=== PATIENT | female | born 1935 | race Caucasian/White ===

== ENCOUNTER 2022-09-11 14:07 | Inpatient (IN) ==
[2022-09-11] MEDS ORDERED: SODIUM CHLORIDE 0.9% 1000ML 500 ML IV ONE (14:32)
--- NOTE | 2022-09-11 14:37 | Emergency Department Note ---
Impression & Plan Acute hyperglycemia, Acute CVA (cerebrovascular accident), AMS (altered mental status), ESTHER (acute kidney injury) ED Provider Note NAME: RADHA HOUSE AGE: 86 SEX: F : 1935 ARRIVES VIA: Ambulance INFORMANT: Patient, EMS ED PROVIDER(S): Tom Herrera DO CHIEF COMPLAINT: Weakness HPI: The patient is an 86-year-old female who presented to the emergency department for an evaluation of altered mental status. Patient has been noncompliant with her medications. She has been falling recently. It was unclear if the patient was well enough to be seen as an outpatient. Her family members called 911 yesterday but the patient was able to refuse because she was not confused at that time. The family noticed that she is having worsening symptoms. She was noted to be ambulating poorly. She also was noted to have high blood sugar. Prehospital personnel noted that she does have a left-sided facial droop. She does have global weakness as well. It is unclear if the patient has been compliant with her outpatient medications. There is been no reported fevers. There is been no reported abdominal pain or vomiting. ROS: See above HPI for pertinent positives & negatives. A total of 10 systems reviewed and were otherwise negative. PAST MEDICAL HISTORY: See Below PAST SURGICAL HISTORY: See Below FAMILY HISTORY: See Below SOCIAL HISTORY: See Below HOME MEDICATIONS: See Below ALLERGIES: See Below VITALS: See Below PHYSICAL EXAMINATION: GENERAL: The patient is awake but somewhat listless. She is slow to follow commands. EYES: The conjunctivae are clear. The pupils are round and reactive. EARS, NOSE, MOUTH AND THROAT: The nose is without any evidence of any deformity. Mucous membranes are dry. NECK: The neck is nontender and supple. RESPIRATORY: Shallow respirations were noted. Diminished breath sounds are noted throughout. CARDIOVASCULAR: Regular rate and rhythm was noted auscultation. Systolic murmur was suggested. GASTROINTESTINAL: The abdomen is distended. There is no specific guarding or rigidity. MUSCULOSKELETAL/EXTREMITIES: There is no evidence of gross deformity full range of motion is noted in the hips and shoulders. SKIN: Trace pedal edema was noted bilaterally. NEUROLOGIC: Patient is awake to verbal commands. She appears to be oriented to person but not place or time. There was no drift in the upper extremities. There is a slight facial droop on the corner of the mouth on the left. Forehead appears to be spared. MEDICAL DECISION MAKING: The patient is an 86-year-old female who presented to the emergency department for an evaluation of altered mental status. The family has been trying to get the patient to come to the emergency department for an evaluation for the last 48 hours. The patient has been noted to have elevated blood sugar although she does not have a history of diabetes. The patient was also noted to have a left- sided facial droop which was new as of the last few weeks. I discussed patient's laboratory and radiographic studies with the family. The patient was found to have signs of subacute stroke on CT. The patient was also found have hyperglycemia and acute kidney injury. The patient was treated with IV antibiotic for empiric coverage. She was also treated with multiple IV fluid boluses and at the request of the admitting team she was started on DKA insulin. The patient was reevaluated multiple times. I discussed the patient's condition with the patient's family members as well. Triage Nursing notes reviewed. Prior medical records reviewed Vital Signs: reviewed and remarkable for bradycardia. Differential diagnosis: Infection, hypoglycemia, electrolyte abnormalities, overdose, toxicologic, cardiac sources, intracerebral event, neurologic, trauma, as well as other pathologies. ER treatment provided: See below Diagnostics interpreted by me: ECG: EKG was obtained in the emergency department. My interpretation is sinus bradycardia 53 bpm. There is no ectopy. There is no acute ST segment abnormalities noted. This was compared to a tracing from September 02, 2022. No changes were noted. Cardiac Monitoring: An order was placed for continuous cardiac monitoring. The monitor shows a rate of 56 bpm with sinus bradycardia. Laboratory studies: As stated above and show below. Imaging studies: See below Consultation(s): I [facility] this case [facility] COURSE: Procedures: none Critical Care: I have personally spent greater than 35 minutes of critical care time in the direct management of this patient. This includes bedside care, interpretation of diagnostic studies, and testing, discussion with consultants, patient, and family members, and other required patient management activities. This 35 minutes is in excess of all separately billable procedures. Past Med/Surg History Medical History Ambulatory dysfunction Aortic stenosis Atherogenic dyslipidemia Benign essential hypertension Diabetes Extensor tenosynovitis of right wrist Impingement of right shoulder Primary osteoarthritis, right wrist TIA (transient ischemic attack) Weakness Social History Smoking Status: Never smoker Preferred Language: Upper Sorbian Feels Safe at Home: Yes Allergies Allergies Allergy/AdvReac Type Severity Reaction Status Date / Time No Known Drug Allergies Allergy Unknown Unverified 09/02/22 15:19 Home Meds Home Medications Medication Instructions Recorded Confirmed furosemide 40 mg tablet 40 mg PO DAILY 09/02/22 09/02/22 ibuprofen 600 mg tablet 600 mg PO Q8H PRN 09/02/22 09/02/22 lisinopril 10 mg tablet 10 mg PO BID 09/02/22 09/02/22 metoprolol succinate 25 mg 25 mg PO BID 09/02/22 09/02/22 tablet,extended release 24 hr naproxen sodium 220 mg tablet 440 mg PO BID PRN 09/02/22 09/02/22 Previous Rx's Medication Instructions Recorded diazepam 5 mg tablet 5 mg PO USEASDIRECTD #2 tabs 05/09/22 Results & Data (ED) Vital Signs Vital Signs - 24 hr 09/11/22 14:02 09/11/22 15:00 09/11/22 15:00 Temperature 36.6 C Temperature Source Oral Pulse Rate 74 Pulse Rate [Right Finger] 56 L Pulse Rhythm Regular Pulse Rhythm [Right Finger] Regular Pulse Strength Normal Pulse Strength [Right Finger] Normal Respiratory Rate 19 18 Respiratory Effort / Characteristics Non-Labored Spontaneous Non-Labored Respiratory Depth Normal Normal Respiratory Pattern Regular Regular Blood Pressure 111/51 L Blood Pressure [Right Arm] 127/58 L Blood Pressure Mean 71 Blood Pressure Mean [Right Arm] 81 Blood Pressure Position Sitting Pulse Oximetry 98 97 Oxygen Delivery Method Room Air Room Air Room Air Sepsis Recent Fever Within 48 Hours No Sepsis New/Unexplained Change in Mental Status N/A Sepsis Action Taken by Nursing No Action Required 09/11/22 15:00 Temperature Temperature Source Pulse Rate Pulse Rate [Right Finger] Pulse Rhythm Pulse Rhythm [Right Finger] Pulse Strength Pulse Strength [Right Finger] Respiratory Rate Respiratory Effort / Characteristics Respiratory Depth Respiratory Pattern Blood Pressure Blood Pressure [Right Arm] Blood Pressure Mean Blood Pressure Mean [Right Arm] Blood Pressure Position Pulse Oximetry Oxygen Delivery Method Room Air Sepsis Recent Fever Within 48 Hours Sepsis New/Unexplained Change in Mental Status Sepsis Action Taken by Long-Term Medications Current Medication List: was personally reviewed by me Laboratory Data Attestation: I reviewed the patient's lab results. Result diagrams: 09/11/22 15:14 09/11/22 15:14 Lab Results 09/11/22 09/11/22 09/11/22 Range/Units 15:14 15:14 15:14 WBC 13.06 H (4.8-10.8) K/ul RBC 4.07 (3.93-5.22) M/uL Hgb 11.4 L (12.0-16.0) g/dl Hct 33.7 L (34.1-44.9) % MCV 82.8 (80.0-100.0) fL MCH 28.0 (25.0-34.0) pg MCHC 33.8 (32.0-36.0) g/dL RDW Std Deviation 40.5 (36.4-46.3) fL RDW Coeff of Germain 13.3 (11.5-14.5) % Plt Count 362 (130-400) K/uL MPV 11.8 (9.4-12.3) fL Immature Gran % (Auto) 0.6 % Neut % (Auto) 76.8 % Lymph % (Auto) 15.2 % [place] % (Auto) 6.1 % Eos % (Auto) 1.0 % Baso % (Auto) 0.3 % Neut # (Auto) 10.03 H (1.4-6.5) K/uL Lymph # (Auto) 1.98 (1.2-3.4) K/uL [place] # (Auto) 0.80 (0.24-0.82) K/uL Eos # (Auto) 0.13 (0-0.50) K/uL Baso # (Auto) 0.04 (0-0.2) K/uL Immature Gran # (Auto) 0.08 H (0.00-0.02) K/uL PT 10.9 (9.0-12.0) Seconds INR 1.0 (0.9-1.1) APTT 24.7 (21.0-31.0) Seconds PTT Ratio 0.9 ABG pH (7.35-7.45) ABG pCO2 (35-46) mmHg ABG pO2 (80-95) mmHg ABG HCO3 (19-24) mmol/L ABG O2 Saturation (90-95) % ABG Base Excess (-9-1.8) mEq/L Campos Test (Pos) Oxygen Given Sodium 123 L (136-145) mmol/L Potassium 3.5 (3.5-5.1) mmol/L Chloride 91 L (98-107) mmol/L Carbon Dioxide 20 L (21-32) mmol/L Anion Gap 12 H (3-11) BUN 80 H (6-23) mg/dl Creatinine 2.70 H (0.6-1.2) mg/dl Est Cr Clr Drug Dosing 11.1 ml/min Est GFR ( Amer) 18.0 ml/min Est GFR (Non-Af Amer) 15.6 ml/min BUN/Creatinine Ratio 29.6 H (10-20) Glucose 532 H* (70-99(Fasting)) mg/dl Lactate (0.4-2.0) mmol/L Calcium 7.7 L (8.5-10.1) mg/dl Magnesium 1.8 (1.7-2.4) mg/dl Total Bilirubin 0.4 (0.2-1.0) mg/dl Direct Bilirubin 0.1 (0-0.2) mg/dl AST 7 L (13-39) U/L ALT 9 (7-52) U/L Alkaline Phosphatase 84 (34-104) U/L Troponin I High Sens 27.2 H (0-14) pg/ml C-Reactive Protein 1.01 H (0-0.5) mg/dl Total Protein 5.6 L (6.0-8.3) gm/dl Albumin 2.9 L (3.4-5.0) gm/dl 09/11/22 09/11/22 09/11/22 Range/Units 15:14 15:14 15:14 WBC (4.8-10.8) K/ul RBC (3.93-5.22) M/uL Hgb (12.0-16.0) g/dl Hct (34.1-44.9) % MCV (80.0-100.0) fL MCH (25.0-34.0) pg MCHC (32.0-36.0) g/dL RDW Std Deviation (36.4-46.3) fL RDW Coeff of Germain (11.5-14.5) % Plt Count (130-400) K/uL MPV (9.4-12.3) fL Immature Gran % (Auto) % Neut % (Auto) % Lymph % (Auto) % [place] % (Auto) % Eos % (Auto) % Baso % (Auto) % Neut # (Auto) (1.4-6.5) K/uL Lymph # (Auto) (1.2-3.4) K/uL [place] # (Auto) (0.24-0.82) K/uL Eos # (Auto) (0-0.50) K/uL Baso # (Auto) (0-0.2) K/uL Immature Gran # (Auto) (0.00-0.02) K/uL PT (9.0-12.0) Seconds INR (0.9-1.1) APTT (21.0-31.0) Seconds PTT Ratio ABG pH 7.39 (7.35-7.45) ABG pCO2 36 (35-46) mmHg ABG pO2 100 H (80-95) mmHg ABG HCO3 22 (19-24) mmol/L ABG O2 Saturation 99.5 H (90-95) % ABG Base Excess -2.6 (-9-1.8) mEq/L Campos Test Pos (Pos) Oxygen Given ROOM AIR Sodium (136-145) mmol/L Potassium (3.5-5.1) mmol/L Chloride (98-107) mmol/L Carbon Dioxide (21-32) mmol/L Anion Gap (3-11) BUN (6-23) mg/dl Creatinine (0.6-1.2) mg/dl Est Cr Clr Drug Dosing ml/min Est GFR ( Amer) ml/min Est GFR (Non-Af Amer) ml/min BUN/Creatinine Ratio (10-20) Glucose (70-99(Fasting)) mg/dl Lactate 0.6 (0.4-2.0) mmol/L Calcium (8.5-10.1) mg/dl Magnesium (1.7-2.4) mg/dl Total Bilirubin (0.2-1.0) mg/dl Direct Bilirubin (0-0.2) mg/dl AST (13-39) U/L ALT (7-52) U/L Alkaline Phosphatase (34-104) U/L Troponin I High Sens (0-14) pg/ml C-Reactive Protein Cancelled (0-0.5) mg/dl Total Protein (6.0-8.3) gm/dl Albumin (3.4-5.0) gm/dl Administered Medications Discontinued Medications Sodium Chloride (Nss 1000ml) 500 mls @ 999 mls/hr IV .Q31M ONE Stop: 09/11/22 15:02 Last Infusion: 09/11/22 15:20 Dose: 0 mls/hr Documented By: Admin: 09/11/22 14:43 Dose: 999 mls/hr Documented By: AP Imaging Data Radiologist's Impression: Chest X-Ray 09/11/22 14:31 XR chest 1V portable HISTORY: 86 years-old Female Sepsis acute sepsis COMPARISON: None TECHNIQUE: AP view of the chest FINDINGS: Heart is upper limits of normal in size. Mitral annular calcifications. No pneumothorax, pleural effusion, airspace consolidation or overt pulmonary edema. Degenerative changes of the shoulders and spine. Mild lumbar levoscoliosis. IMPRESSION: No acute process. ACT 112: Negative or not required by law. The above report was generated using voice recognition software. It may contain grammatical, syntax or spelling errors. Electronically signed by: Manuel Joaquin M.D. 09/11/2022 2:[address] 09/11/22 14:[address] DOSE: HISTORY: Altered mental status. TECHNIQUE: Multiaxial CT images of the head were performed without the use of intravenous contrast. Automated exposure control was utilized for this study. A dose lowering technique was utilized adhering to the principles of ALARA. Comparison: None. Findings: The paranasal sinuses and mastoid air cells are clear. The calvarium and skull base are intact. There is no mass, hematoma, midline shift, acute infarct. White matter hypodensity is nonspecific but suggestive of moderate m icrovascular ischemic change. The ventricles and sulci demonstrate mild age- related involutional changes. 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 Impression: No acute intracranial abnormality. Old left basal ganglia infarct. ACT 112: Negative or not required by law. Electronically signed by: Eusebio Barnett M.D. 09/11/2022 3:48 PM Abdomen/Pelvis CT 09/11/22 14:33 CT SCAN OF THE ABDOMEN AND PELVIS WITHOUT IV CONTRAST CLINICAL HISTORY: Abdominal distention COMPARISON STUDY: No priors. TECHNIQUE: CT scan of the abdomen and pelvis is performed from the lung bases to the proximal femora. Images are reviewed in the axial, sagittal, and coronal planes. IV contrast was not administered for this examination. Note that the examination is suboptimal without oral and IV contrast. A dose lowering technique was utilized adhering to the principles of ALARA. CT DOSE: 957.11 mGy.cm FINDINGS: Lung bases: The heart is enlarged and without pericardial effusion. The coronary arteries and mitral annulus are densely calcified. A 3 mm pulmonary nodule the left lung base as seen on image #5. The lung bases are otherwise clear noting bibasilar scarring/atelectasis. A small hiatal hernia is noted. Liver: The unenhanced liver is normal in size, contour, and attenuation. There is no intrahepatic biliary ductal dilatation. Gallbladder: Unremarkable. Spleen: Normal in size and attenuation. Pancreas: The unenhanced pancreas is moderately atrophic and grossly unremarkable. Adrenal glands: Unremarkable. Kidneys: The unenhanced kidneys demonstrate cortical atrophy and are without hydronephrosis. There are no renal calculi identified. A 2.0 cm cyst is noted in the left upper pole. 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 Abdominal vasculature: The abdominal aorta is normal in course and caliber noting moderate to advanced atherosclerotic calcification. Bowel: Question mild wall thickening of the duodenum with faint surrounding infiltration. There is mild to moderate colonic fecal retention. No bowel ob struction is seen. The appendix is well-visualized and normal. Peritoneum: There is no intraperitoneal free air or abdominal ascites. Lymphadenopathy: None. Pelvic viscera: There is gas within the bladder lumen. The bladder is otherwise normal as visualized. Uterus and adnexa are grossly unremarkable. Skeletal structures: The skeletal structures are heterogeneously osteopenic. There is moderate to advanced lumbosacral spondylosis. No lytic or blastic lesions are seen. IMPRESSION: 1. Question mild wall thickening of the duodenum with faint surrounding infiltration. Correlate clinically for evidence of duodenitis or possibly ulcer disease. This could be further assessed with endoscopy if clinically warranted. 2. [id number] colonic fecal retention. 3. Gas within the bladder lumen is nonspecific and may be related to instrumentation. Correlate with clinical findings and urinalysis. 4. Additional findings as above. ACT 112: Negative or not required by law. Electronically signed by: Shai Viera M.D. 09/11/2022 3:57 PM Discharge Plan Visit Data Chief Complaint: Weakness Stated Complaint: HYPERGLYCEMIA, DECLINE IN HEALTH, CONFUSION ED Provider: Tom Herrera Discharge Problem: Acute hyperglycemia, Acute CVA (cerebrovascular accident), AMS (altered mental status), ESTHER (acute kidney injury) Patient Disposition: Being Evaluated by Hospitalist Forms Stand Alone Forms: [facility] Prescriptions Prescriptions: No Action furosemide 40 mg tablet 40 mg PO DAILY lisinopril 10 mg tablet 10 mg PO BID naproxen sodium 220 mg tablet 440 mg PO BID PRN metoprolol succinate 25 mg tablet extended release 24 hr 25 mg PO BID ibuprofen 600 mg tablet 600 mg PO Q8H PRN diazepam 5 mg tablet 5 mg PO USEASDIRECTD Qty: 2 0RF Rx Instructions: 1 PO 30 MIN PRIOR TO PROCEDURE; 1 PO 5 MIN PRIOR TO PROCEDURE Referrals Referrals: PCP,NO [Physician] - : AMS (altered mental status) Qualifiers: Altered mental status type: unspecified Qualified Code(s): R41.82 - Altered mental status, unspecified
--- NOTE | 2022-09-11 15:00 | XRay Report ---
XR chest 1V portable HISTORY: 86 years-old Female Sepsis acute sepsis COMPARISON: None TECHNIQUE: AP view of the chest FINDINGS: Heart is upper limits of normal in size. Mitral annular calcifications. No pneumothorax, pleural effu ochoa, airspace consolidation or overt pulmonary edema. Degenerative changes of the shoulders and spin e. Mild lumbar levoscoliosis. IMPRESSION: No acute process. ACT 112: Negative or not required by law. The above report was generated using voice recognition software. It may contain grammatical, syntax o r spelling errors. Electronically signed by: Manuel Joaquin M.D. 09/11/2022 2:58 PM
[2022-09-11 15:27] LABS: Basophils # (auto) 0.04 K/uL (0-0.2); Basophils % (auto) 0.3 %; Eosinophils # (auto) 0.13 K/uL (0-0.50); Hematocrit (blood only) 33.7 % (34.1-44.9); Hemoglobin 11.4 g/dl (12.0-16.0); Immature Granulocytes # (auto) 0.08 K/uL (0.00-0.02); Immature Granulocytes % (auto) 0.6 %; Lymphocytes # (auto) 1.98 K/uL (1.2-3.4); Lymphocytes % (auto) 15.2 %; Mean Corpuscular Hgb Conc 33.8 g/dL (32.0-36.0); Mean Corpuscular Volume 82.8 fL (80.0-100.0); Mean Platelet Volume 11.8 fL (9.4-12.3); Monocytes % (auto) 6.1 %; Neutrophils # (auto) 10.03 K/uL (1.4-6.5); Neutrophils % (auto) 76.8 %; Platelet Count 362 K/uL (130-400); RDW Coefficient of Variation 13.3 % (11.5-14.5); RDW Standard Deviation 40.5 fL (36.4-46.3); Red Blood Count 4.07 M/uL (3.93-5.22); White Blood Count 13.06 K/ul (4.8-10.8)
[2022-09-11 15:41] LABS: Base Excess ABG -2.6 mEq/L (-9-1.8); HCO3 ABG 22 mmol/L (19-24); Oxygen Saturation ABG 99.5 % (90-95); PCO2 ABG 36 mmHg (35-46); PO2 ABG 100 mmHg (80-95); pH ABG 7.39 (7.35-7.45)
[2022-09-11 15:42] LABS: Allen Test Pos (Pos)
[2022-09-11] MEDS ORDERED: SODIUM CHLORIDE 0.9% 1000ML 1,000 ML IV ONE (15:48)
--- NOTE | 2022-09-11 15:49 | CT Scan Report ---
HEAD CT NONCONTRAST CT DOSE: HISTORY: Altered mental status. TECHNIQUE: Multiaxial CT images of the head were performed without the use of intravenous contrast. A utomated exposure control was utilized for this study. A dose lowering technique was utilized adheri ng to the principles of ALARA. Comparison: None. Findings: The paranasal sinuses and mastoid air cells are clear. The calvarium and skull base are int act. There is no mass, hematoma, midline shift, acute infarct. White matter hypodensity is nonspecifi c but suggestive of moderate microvascular ischemic change. The ventricles and sulci demonstrate mild age-related involutional changes. 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 Impression: No acute intracranial abnormality. Old left basal ganglia infarct. ACT 112: Negative or not required by law. Electronically signed by: Eusebio Barnett M.D. 09/11/2022 3:48 PM
--- NOTE | 2022-09-11 15:59 | CT Scan Report ---
CT SCAN OF THE ABDOMEN AND PELVIS WITHOUT IV CONTRAST CLINICAL HISTORY: Abdominal distention COMPARISON STUDY: No priors. TECHNIQUE: CT scan of the abdomen and pelvis is performed from the lung bases to the proximal femora. Images are reviewed in the axial, sagittal, and coronal planes. IV contrast was not administered for this examination. Note that the examination is suboptimal without oral and IV contrast. A dose lower ing technique was utilized adhering to the principles of ALARA. CT DOSE: 957.11 mGy.cm FINDINGS: Lung bases: The heart is enlarged and without pericardial effusion. The coronary arteries and mitral annulus are densely calcified. A 3 mm pulmonary nodule the left lung base as seen on image #5. The gemini ng bases are otherwise clear noting bibasilar scarring/atelectasis. A small hiatal hernia is noted. Liver: The unenhanced liver is normal in size, contour, and attenuation. There is no intrahepatic preston iary ductal dilatation. Gallbladder: Unremarkable. Spleen: Normal in size and attenuation. Pancreas: The unenhanced pancreas is moderately atrophic and grossly unremarkable. Adrenal glands: Unremarkable. Kidneys: The unenhanced kidneys demonstrate cortical atrophy and are without hydronephrosis. There ar e no renal calculi identified. A 2.0 cm cyst is noted in the left upper pole. 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 Abdominal vasculature: The abdominal aorta is normal in course and caliber noting moderate to advance d atherosclerotic calcification. Bowel: Question mild wall thickening of the duodenum with faint surrounding infiltration. There is mi ld to moderate colonic fecal retention. No bowel obstruction is seen. The appendix is well-visualize d and normal. Peritoneum: There is no intraperitoneal free air or abdominal ascites. Lymphadenopathy: None. Pelvic viscera: There is gas within the bladder lumen. The bladder is otherwise normal as visualized. Uterus and adnexa are grossly unremarkable. Skeletal structures: The skeletal structures are heterogeneously osteopenic. There is moderate to adv anced lumbosacral spondylosis. No lytic or blastic lesions are seen. IMPRESSION: 1. Question mild wall thickening of the duodenum with faint surrounding infiltration. Correlate clini augutsus for evidence of duodenitis or possibly ulcer disease. This could be further assessed with endos copy if clinically warranted. 2. Dbnm-rh-[id number] colonic fecal retention. 3. Gas within the bladder lumen is nonspecific and may be related to instrumentation. Correlate with clinical findings and urinalysis. 4. Additional findings as above. ACT 112: Negative or not required by law. Electronically signed by: Shai Viera M.D. 09/11/2022 3:57 PM
[2022-09-11 16:02] LABS: Partial Thromboplastin Ratio 0.9; Partial Thromboplastin Time 24.7 Seconds (21.0-31.0); Prothrombin Time 10.9 Seconds (9.0-12.0)
[2022-09-11 16:12] LABS: Albumin Level 2.9 gm/dl (3.4-5.0); BUN Creatinine Ratio 29.6 (10-20); Bilirubin Direct 0.1 mg/dl (0-0.2); Bilirubin,Total 0.4 mg/dl (0.2-1.0); C Reactive Protein 1.01 mg/dl (0-0.5); Calcium 7.7 mg/dl (8.5-10.1); Creatinine Clr Calc Pharmacy 11.1 ml/min; Est GFR (Non-African American) 15.6 ml/min; Magnesium 1.8 mg/dl (1.7-2.4); Potassium 3.5 mmol/L (3.5-5.1); Total Protein 5.6 gm/dl (6.0-8.3); Troponin I High Sensitivity 27.2 pg/ml (0-14)
[2022-09-11] MEDS ORDERED: GLUCOSE 10 TAB/TUBE PO PRN (16:18)
[2022-09-11] MEDS ORDERED: GLUCAGON FOR INJ 1 MG VIAL SQ PRN (16:18)
[2022-09-11] MEDS ORDERED: DEXTROSE 50% 50 ML SYRINGE IV PRN (16:18)
[2022-09-11] MEDS ORDERED: CARBOHYDRATES FOR HYPOGLYCEMIA PO PRN (16:18)
[2022-09-11] MEDS ORDERED: SODIUM CHLORIDE 0.9% 500 ML IV ONE (16:18)
[2022-09-11] MEDS ORDERED: DKA GOAL RANGE 150-250 mg/dl ONE (16:18)
[2022-09-11] MEDS ORDERED: STAT INSULIN DRIP STA (16:18)
[2022-09-11] MEDS ORDERED: GLUCOSE 40% GEL 15 GM TUBE PO PRN (16:18)
[2022-09-11] MEDS ORDERED: cefTRIAXone SODIUM 2,000 MG/70 ML BAG IV STA (16:20)
--- NOTE | 2022-09-11 16:26 | Electrocardiogram Report ---
Test Reason : Blood Pressure : / mmHG Vent. Rate : 053 BPM Atrial Rate : 053 BPM P-R Int : 156 ms QRS Dur : 086 ms QT Int : 470 ms P-R-T Axes : 000 -15 025 degrees QTc Int : 441 ms Poor data quality, interpretation may be adversely affected Sinus bradycardia Old Inferior infarct (cited on or before 02-SEP-2022) Abnormal ECG When compared with ECG of 02-SEP-2022 15:04, HR has decreased by 11 bpm Premature atrial complexes are no longer Present Criteria for Anterior infarct are no longer Present Confirmed by Patric Watkins ([id number]) on 09/11/2022 4:26:26 PM Referred By: REFERRED SELF Confirmed By:Patric Watkins
[2022-09-11] MEDS ORDERED: INSULIN REGULAR 250 UNITS in SODIUM CHLORIDE 0.9% 247.5 ML IV SCH (16:30)
--- NOTE | 2022-09-11 16:30 | History & Physical Report ---
Date of Service September 11, 2022 Assessment & Plan (1) DKA (diabetic ketoacidosis): Plan: -Admit to the PCU -Patient is currently afebrile, hemodynamically stable, and stable on RA -BSG noted to be 532 in the ED, AG of 12 with bicarb of 12, while she was not acidotic on her VBG it looks as though she was entering into an acidosis -Unclear of the exact etiology of her DKA at this time, suspect infection at this time with multiple possible etiologies including possible UTI, septic arthritis of the right wrist S/P steroid injection, or occult abdominal infection -Having nursing staff place gray and obtain UA, ordering xray of the right wrist to monitor for signs of infection, will get stool studies including C. diff to rule out gastrointestinal infection -Was given NSS and a dose of ceftriaxone in the ED, had the ED start DKA protocol prior to admission -Continue with DKA protocol, initial potassium was noted to be 3.5, ordered 10 meq IV KCL to be given now, will continue with IV hydration with LR at 100 mL/hr x 2 bags, will continue with IV fluid hydration if she still cannot take po intake later tonight -For now will switch patient to zosyn and unasyn for broad coverage until her infectious workup is resulted -Monitor BMP, mag, and phos q4h while on insulin drip -Will order A1c for the am for better monitoring of her blood glucose control (2) AMS (altered mental status): Plan: -Patient noted to have significant change in mental status over the past 48-72 hours, also noted to be slurring words and ambulatory dysfunction -Concern for possible stroke earlier in the week, CT head in the ED was negative for acute findings, will obtain MRI of the brain and TTE with bubble study for further evaluation -There is liekly also a metabolic/infectious component to her AMS at this time as well, continue to monitor mental status with treatment of her DKA and possible infection (3) High anion gap metabolic acidosis: Plan: -Likely from her DKA, lactate was WNL in the ED -Continue to treat DKA and possible infections and monitor for improvement on q4h DKA labs -If her acidosis and renal function would continue to decline would consider the addition of Sodium bicarb (4) SHRUTHI (acute kidney injury): Plan: -Cr noted to be 2.7 today, cr was 1.40 as of 08/10/21 -Unclear of patient's baseline since last year, also unsure if her baseline changed after her recent episode of rhabdo prior to moving to [place] includes the [facility] [place]. Patient was also consistently taking Naproxen and Ibuprofen daily for OA pain, this could be contributing to her poor renal function -Continue with IV hydration, DKA treatment, and antibiotics -Placed forley for better monitoring of her intake and output -Montior renal function q4h on BMP, if she continues to worsen would consult nephrology (5) Hyponatremia: Plan: -Noted to be 130 today after correcting for her glucose of 532 -Likely from poor oral intake, dehydration, and possible ATN -Monitor sodium on q4h BMP, if significant change on repeat would touch base with Nephrology (6) Aortic stenosis: Plan: -Known to have severe -Follows with Dr. Oquendo -FU with TTE tomorrow -Monitor for volume overload while on IV fluids (7) Benign essential hypertension: Plan: -Currently hemodynamically stable -Hold lisinopril and lasix for Shruthi and electrolyte abnormalities -Will continue metoprolol for now Plan The patient was discussed with Dr. Day at the time of the admission History of Present Illness Chief Complaint: AMS Primary Care Provider: Alton Villatoro MD Piper is an 86 year old female with a PMH significant for DM (not recently on insulin), right wrist OA, previous CVA, multiple recent falls, HTN, hyperlipidemia, Aortic stenosis, In the ED the patient was found to be afebrile, hemodynamically stable, stable on RA, and bradycardic in the 50's. Labs were remarkable for leukocytosis of 13.06 with left shift of 10.03, stable hgb of 11.4, VBG showing a pH of 7.39, pCO2 of 36, and pO2 of 100, glucose of 532, Cr of 2.7 (was noted to be 1.4 as of 08/10/21), corrected sodium of 130, chloride of 91, AG of 12 with bicarb of 20, corrected calcium of 8.4, stable liver function, CRP of 1.01, with initial high sensitivity troponin of 27.2, Chest xray was negative for acute findings. CT of the head was negative for acute findings but showed an Old left basal ganglia infarct. CT of the abdomen/pelvis WO IV contrast shows "1. Question mild wall thickening of the duodenum with faint surrounding infiltration. Correlate clinically for evidence of duodenitis or possibly ulcer disease. This could be further assessed with endoscopy if clinically warranted. 2. Trog-fx-gclgqmxr colonic fecal retention. 3. Gas within the bladder lumen is nonspecific and may be related to instrumentation. Correlate with clinical findings and urinalysis. 4. Additional findings as above.". Prior to admission the patient was given 1L NSS bolus, one dose of ceftriaxone, and was started on DKA protocol at the request of the admitting team. At the time of the exam the patient was resting comfortably in bed in no acute distress with her Son and his sitting bedside; the majority of the history was obtained from the patient's family due to her currently mental status. They state that she is originally from [place] and was just moved up her to live with her son and his around [facility]. Initially, the patient was doing well, they turned their dinning room into her bedroom. However, over the past 1-2 weeks she has had a steep decline in health and function. They state that she had a fall approximately two weeks ago but did not sustain any serious injuries. Approximately 3 days ago she started slurring her words and having worsening ambulatory dysfunction. The patient has had loose stool over the past week but only one bowel movement daily, they think that her stool looked dark but has not seen blood in her stool. They note that she had a steroid injection in her left wrist for arthritis with orthopedics approximately 1-2 weeks ago. She has not been eating well over the past week and takes Ibuprofen and Naproxen multiple times daily for her arthritis. They state that she had been managing her blood glucose with diet and exercise and does not use insulin. Yesterday they found her blood glucose to be in the 500's, they called 911 but the patient had decision making capacity at that time and refused to be transported to the hospital. Her family is concerned that she may have a UTI as she had been complaining of dysuria and urinary frequency over the past few days. When asked about any wounds they noted that she has a sacral wound on her buttocks that they have been cleaning and adding barrier cream multiple times a day. The patient was recently seen by Dr. Quijano who also known the patient and her family well due to being a family friend. He was very concerned at their visit due to a significant decline in overall function and health since he last saw her. He was helping the family establish her care in the [facility] system with Dr. Vilaltoro as they known him as well. Dr. Truong's note explains that the patient was hospitalized for Rhabdomyolysis due to a fall and being on the ground for 2 days prior to being moved [facility] [employer]. I spoke to the family regarding code status, they are currently in the process of getting a living will and POA for the patient. We discussed code status, the patient's family states that she has stated clearly to them in the past that she wishes to be a DNR/DNI. When asked, the patient denies recent fevers, chills, headache, changes in vision, hearing, taste, and smell, chest pain, SOB, cough, abdominal pain, nausea, vomiting, and any pain at the time of my exam. Please refer to Dr. Day's attestation for any changes to the treatment plan Allergies Allergy/AdvReac Type Severity Reaction Status Date / Time No Known Allergies Allergy Verified 09/11/22 17:02 Home Medications Medication Instructions Recorded Confirmed Type lisinopril 10 mg tablet 10 mg PO BID 09/02/22 09/11/22 History atorvastatin 40 mg tablet 40 mg PO DAILY 09/11/22 09/11/22 History metoprolol tartrate 25 mg tablet 25 mg PO BID 09/11/22 09/11/22 History insulin aspart U-100 100 unit/mL 1 unit (0.01 mL) SC UD #10 mL 09/16/22 Rx subcutaneous solution (Novolog U-100 Insulin aspart) insulin glargine 100 unit/mL 8 unit (0.08 mL) subcut UD #10 mL 09/16/22 Rx subcutaneous solution (Lantus U-100 Insulin) pantoprazole 40 mg tablet,delayed 40 mg PO QAM #30 tabs 09/16/22 Rx release Past Med/Surg History Medical History Ambulatory dysfunction Aortic stenosis Atherogenic dyslipidemia Benign essential hypertension Diabetes Extensor tenosynovitis of right wrist Impingement of right shoulder Primary osteoarthritis, right wrist TIA (transient ischemic attack) Weakness Social History Smoking Status: Never smoker Hx Alcohol Use: No Hx Substance Use: No Preferred Language: [place] Citizen Communication Ability: Effective Computer Video Game Designer Required: No Beliefs That Will Affect Care: None Current Living Situation: Family Current Living Situation Comment: lives with son kimo Feels Safe at Home: Yes Assistive Devices: Cane Review of Systems Review of Systems: Denies current fever, chills, headache, changes in vision, hearing, taste, and smell, chest pain, SOB, cough, abdominal pain, nausea, vomiting, hematemesis, All systems have been reviewed and are otherwise negative. Physical Exam Physical Exam: Physical Exam: General: In no acute distress, stated age,malnourished, chronically ill- appearing HEENT: Normocephalic, atraumatic, no scleral icterus, pupils around round, symmetrical, and reactive to light, dry mucus membranes, trachea midline, no thyromegaly Chest/Pulm: No respiratory distress, symmetrical chest expansion, clear breath sounds throughout Cardiac: RRR, 5/6 systolic murmur heard best in the aortic area with radiation to the carotids Abdomen: Negative for ascites and bruising, normoactive bowel sounds, soft, non-tender to palpation throughout Musculoskeletal: Patient with intak ROM of the BL upper and lower extremities, right wrist is currently wrapped due to attempts to place IV, no significant swelling, erythema, or pain upon movement or palpation of the wrist. Patient with small, non-infected skin tear on the second left toe, no other acute trauma noted. Able to flex head and turn her head to the left/right without stiffness or pain Extremities: Radial, dorsalis pedis, and posterior tibial pulses are intact and symmetrical, no edema noted in the BL LE's Skin: Patient with pressure ulcer and minor skin breakdown on the sacrum, no current drainage at this time Neuro: Alert and oriented to person and month only, place, currently slurring words, possible right facial droop, CN II-XII tested and intact,, no tremors noted Psych: No acute distress, calm and cooperative during the exam Results & Data Results & Data ([facility]) Vital Signs (Past 12 Hours) Vital Signs Temp Pulse Pulse Resp BP BP Pulse Ox 09/11/22 15:00 09/11/22 15:00 56 L 18 127/58 L 97 09/11/22 15:00 09/11/22 14:02 36.6 C 74 19 111/51 L 98 O2 Del Method 09/11/22 15:00 Room Air 09/11/22 15:00 Room Air 09/11/22 15:00 Room Air 09/11/22 14:02 Room Air Laboratory Results Abnormal lab results 09/11/22 09/11/22 09/11/22 Range/Units 15:14 15:14 15:14 WBC 13.06 H (4.8-10.8) K/ul Hgb 11.4 L (12.0-16.0) g/dl Hct 33.7 L (34.1-44.9) % Neut # (Auto) 10.03 H (1.4-6.5) K/uL Immature Gran # (Auto) 0.08 H (0.00-0.02) K/uL ABG pO2 100 H (80-95) mmHg ABG O2 Saturation 99.5 H (90-95) % Sodium 123 L (136-145) mmol/L Chloride 91 L (98-107) mmol/L Carbon Dioxide 20 L (21-32) mmol/L Anion Gap 12 H (3-11) BUN 80 H (6-23) mg/dl Creatinine 2.70 H (0.6-1.2) mg/dl BUN/Creatinine Ratio 29.6 H (10-20) Glucose 532 H* (70-99(Fasting)) mg/dl Calcium 7.7 L (8.5-10.1) mg/dl AST 7 L (13-39) U/L Troponin I High Sens 27.2 H (0-14) pg/ml C-Reactive Protein 1.01 H (0-0.5) mg/dl Total Protein 5.6 L (6.0-8.3) gm/dl Albumin 2.9 L (3.4-5.0) gm/dl Diagnostic Findings Chest X-Ray 09/11/22 14:31 XR chest 1V portable HISTORY: 86 years-old Female Sepsis acute sepsis COMPARISON: None TECHNIQUE: AP view of the chest FINDINGS: Heart is upper limits of normal in size. Mitral annular calcifications. No pneumothorax, pleural effusion, airspace consolidation or overt pulmonary edema. Degenerative changes of the shoulders and spine. Mild lumbar levoscoliosis. IMPRESSION: No acute process. ACT 112: Negative or not required by law. The above report was generated using voice recognition software. It may contain grammatical, syntax or spelling errors. Electronically signed by: Manuel Joaquin M.D. 09/11/2022 2:[address] 09/11/22 14:[address] DOSE: HISTORY: Altered mental status. TECHNIQUE: Multiaxial CT images of the head were performed without the use of intravenous contrast. Automated exposure control was utilized for this study. A dose lowering technique was utilized adhering to the principles of ALARA. Comparison: None. Findings: The paranasal sinuses and mastoid air cells are clear. The calvarium and skull base are intact. There is no mass, hematoma, midline shift, acute infarct. White matter hypodensity is nonspecific but suggestive of moderate microvascular ischemic change. The ventricles and sulci demonstrate mild age- related involutional changes. 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 Impression: No acute intracranial abnormality. Old left basal ganglia infarct. ACT 112: Negative or not required by law. Electronically signed by: Eusebio Barnett M.D. 09/11/2022 3:48 PM Abdomen/Pelvis CT 09/11/22 14:33 CT SCAN OF THE ABDOMEN AND PELVIS WITHOUT IV CONTRAST CLINICAL HISTORY: Abdominal distention COMPARISON STUDY: No priors. TECHNIQUE: CT scan of the abdomen and pelvis is performed from the lung bases to the proximal femora. Images are reviewed in the axial, sagittal, and coronal planes. IV contrast was not administered for this examination. Note that the examination is suboptimal without oral and IV contrast. A dose lowering technique was utilized adhering to the principles of ALARA. CT DOSE: 957.11 mGy.cm FINDINGS: Lung bases: The heart is enlarged and without pericardial effusion. The coronary arteries and mitral annulus are densely calcified. A 3 mm pulmonary nodule the left lung base as seen on image #5. The lung bases are otherwise clear noting bibasilar scarring/atelectasis. A small hiatal hernia is noted. Liver: The unenhanced liver is normal in size, contour, and attenuation. There is no intrahepatic biliary ductal dilatation. Gallbladder: Unremarkable. Spleen: Normal in size and attenuation. Pancreas: The unenhanced pancreas is moderately atrophic and grossly unremarkable. Adrenal glands: Unremarkable. Kidneys: The unenhanced kidneys demonstrate cortical atrophy and are without hydronephrosis. There are no renal calculi identified. A 2.0 cm cyst is noted in the left upper pole. 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 Abdominal vasculature: The abdominal aorta is normal in course and caliber noting moderate to advanced atherosclerotic calcification. Bowel: Question mild wall thickening of the duodenum with faint surrounding infiltration. There is mild to moderate colonic fecal retention. No bowel obstruction is seen. The appendix is well-visualized and normal. Peritoneum: There is no intraperitoneal free air or abdominal ascites. Lymphadenopathy: None. Pelvic viscera: There is gas within the bladder lumen. The bladder is otherwise normal as visualized. Uterus and adnexa are grossly unremarkable. Skeletal structures: The skeletal structures are heterogeneously osteopenic. There is moderate to advanced lumbosacral spondylosis. No lytic or blastic lesions are seen. IMPRESSION: 1. Question mild wall thickening of the duodenum with faint surrounding infiltration. Correlate clinically for evidence of duodenitis or possibly ulcer disease. This could be further assessed with endoscopy if clinically warranted. 2. Dgvl-bo-tlxlvyoq colonic fecal retention. 3. Gas within the bladder lumen is nonspecific and may be related to instrumentation. Correlate with clinical findings and urinalysis. 4. Additional findings as above. ACT 112: Negative or not required by law. Electronically signed by: Shai Viera M.D. 09/11/2022 3:57 PM Wrist X-Ray 09/11/22 17:17 XR wrist RT 2V HISTORY: 86 years-old Female monitor for signs of infection acute right wrist pain with possible infection COMPARISON: ] Hand radiographs 08/28/2022 TECHNIQUE: 2 views of the right wrist FINDINGS: Demineralized appearance of the bones. Multiple articulation osteoarthritis, severe within the first carpal metacarpal joint. There is no acute fracture, dislocation or osseous erosion. Arterial calcifications. IMPRESSION: No acute fracture or dislocation. ACT 112: Negative or not required by law. The above report was generated using voice recognition software. It may contain grammatical, syntax or spelling errors. Electronically signed by: Manuel Joaquin M.D. 09/11/2022 5:36 PM ECG Additional Comments: Sinus bradycardia Inferior infarct (cited on or before 02-SEP-2022) Abnormal ECG When compared with ECG of 02-SEP-2022 15:04, (unconfirmed) Premature atrial complexes are no longer Present Criteria for Anterior infarct are no longer Present Code Status & VTE Plan Code Status DNR/DNI VTE Prophylaxis Plan VTE Prophylaxis will be ordered: Yes Supervising Physician Co-Signing Physician Notes Patient seen and examined by bedside. I obtained a history and physical examination during face to face encounter. I discussed plan of care with patient and APC Chandrakanto. I reviewed above note and agree with it. Patient admitted for DKA. Will be placed on IV insulin and IVF. will monitor. PG Care Time/CCT Total # of Minutes Spent Total Time Spent with Patient: Total time spent is greater than 50% in coordination of care (as documented) at patient's floor/unit and/or counseling patient: C[place] [address] Initial Inpt Care Lvl 3 Patient Type Established Medical Decision Making High Complexity Diagnoses DKA (diabetic ketoacidosis) E11.10 AMS (altered mental status) R41.82 Altered mental status type: unspecified High anion gap metabolic acidosis E87.29 SHRUTHI (acute kidney injury) N17.9 Hyponatremia E87.1 Aortic stenosis I35.0 Benign essential hypertension I10 (1) AMS (altered mental status) Altered mental status type: unspecified Qualified Code(s): R41.82 - Altered mental status, unspecified
[2022-09-11] MEDS ORDERED: POTASSIUM CHLORIDE / WTR 10 MEQ/100 ML PLCT IV ONE (17:24)
[2022-09-11] MEDS ORDERED: LACTATED RINGER'S 1,000 ML IV SCH (17:30)
--- NOTE | 2022-09-11 17:37 | XRay Report ---
XR wrist RT 2V HISTORY: 86 years-old Female monitor for signs of infection acute right wrist pain with possible inf ection COMPARISON: ] Hand radiographs 08/28/2022 TECHNIQUE: 2 views of the right wrist FINDINGS: Demineralized appearance of the bones. Multiple articulation osteoarthritis, severe within the first carpal metacarpal joint. There is no acute fracture, dislocation or osseous erosion. Arterial calcifi cations. IMPRESSION: No acute fracture or dislocation. ACT 112: Negative or not required by law. The above report was generated using voice recognition software. It may contain grammatical, syntax o r spelling errors. Electronically signed by: Manuel Joaquin M.D. 09/11/2022 5:36 PM
[2022-09-11] MEDS ORDERED: AMPICILLIN/SULBACTAM SOD 1,500 MG in 0.9 % SODIUM CHLORIDE 100 ML IV SCH (18:00)
[2022-09-11] MEDS ORDERED: SODIUM CHLOR 0.45% + 20MEQ KCL 20 MEQ/1,000 ML BAG IV SCH (18:30)
[2022-09-11 18:50] LABS: Troponin I High Sensitivity 24.3 pg/ml (0-14)
[2022-09-11 18:51] LABS: Influenza A virus by PCR Negative (Neg); Influenza B virus by PCR Negative (Neg); RSV by PCR Negative (Neg); SARS CoV2 RNA(COVID-19) Ceph NEGATIVE (Negative)
[2022-09-11 18:52] LABS: Magnesium 1.9 mg/dl (1.7-2.4); Phosphorus 3.7 mg/dl (2.5-4.9)
[2022-09-11] MEDS ORDERED: PIPERACILLIN/TAZOBACTAM 3.375 GM in DEXTROSE 5% 100 ML IV STA (20:19)
[2022-09-11] MEDS ORDERED: PANTOprazole 40 MG in SYRINGE 0 ML IV STA (20:23)
[2022-09-11] MEDS: INSULIN ASPART PER UNIT SC SCH (21:29)
[2022-09-11] MEDS: METOPROLOL TARTRATE 25 MG TAB PO SCH (22:05)
[2022-09-11 22:25] LABS: BUN Creatinine Ratio 33.3 (10-20); Calcium 8.2 mg/dl (8.5-10.1); Creatinine Clr Calc Pharmacy 12.7 ml/min; Est GFR (African American) 21.1 ml/min; Est GFR (Non-African American) 18.2 ml/min; Magnesium 1.8 mg/dl (1.7-2.4); Phosphorus 2.7 mg/dl (2.5-4.9); Potassium 3.3 mmol/L (3.5-5.1)
[2022-09-11] MEDS ORDERED: PENDING D5 1/2NS+20mEq KCL IVF SCH (22:45)
[2022-09-11] MEDS: D5W AND 1/2NSS + 20MEQ KCL 20 MEQ/1,000 ML BAG IV SCH (22:59)
[2022-09-12 02:09] LABS: Hematocrit (blood only) 32.3 % (34.1-44.9); Hemoglobin 10.8 g/dl (12.0-16.0)
[2022-09-12 02:32] LABS: BUN Creatinine Ratio 34.7 (10-20); Creatinine Clr Calc Pharmacy 13.7 ml/min; Est GFR (African American) 23.2 ml/min; Magnesium 1.7 mg/dl (1.7-2.4); Phosphorus 3.1 mg/dl (2.5-4.9); Potassium 3.3 mmol/L (3.5-5.1)
[2022-09-12] MEDS: PIPERACILLIN/TAZOBACTAM 3.375 GM in DEXTROSE 5% 100 ML IV SCH ×3 (03:46→16:13)
[2022-09-12 04:11] LABS: Appearance Urine Cloudy (Clear); Bilirubin Urine Negative (Negative); Blood Urine Trace (Negative); Color Urine Yellow; Epithelial Cell Urine Auto >30 /lpf (0-5); Glucose Urine UA Negative (Negative); Ketones Urine Negative (Negative); Leukocyte Esterase Urine 2+ (Negative); Nitrite Urine Negative (Negative); Protein Urine Negative (Negative); Specific Gravity Urine 1.015 (1.000-1.030); Urobilinogen Urine Negative (Negative); WBC Urine Automated >30 /hpf (0-5)
[2022-09-12 04:23] LABS: Bacteria Urine Automated 1+ (Negative)
[2022-09-12] MEDS ORDERED: PHARMACY GLYCEMIC MGMT CONSULT PRN (05:38)
--- NOTE | 2022-09-12 07:16 | Magnetic Resonance Report ---
MRI OF THE BRAIN WITHOUT IV CONTRAST CLINICAL HISTORY: Strokelike symptoms. Change in mental status. Difficulty with speech and ambulation . COMPARISON STUDY: CT of the brain dated 09/11/2022. TECHNIQUE: MRI of the brain was performed utilizing various T1 and T2-weighted sequences in the axial , sagittal, and coronal planes. IV contrast was not administered for this examination. FINDINGS: Brain parenchyma: There is age-related involutional change noting moderate to advanced confluent subc ortical and periventricular microangiopathic disease. There is an irregular region of restricted diff usion identified in the morena which measures up to 11 mm in dimension. This likely represents an acute to subacute lacunar infarct. No additional foci of restricted diffusion are identified. Chronic infa rcts are noted in the left basal ganglia and the left thalamus. There is no hemorrhage or mass effect . No extra-axial fluid collection is seen. The cerebellar tonsils are normal in configuration. Ventricles, sulci, and cisterns: Prominent secondary to involutional change. Pituitary and sella: Unremarkable. Intracranial vasculature: Normal flow voids are maintained at the skull base. Orbits: The bony orbits are grossly intact. Orbital contents are normal in appearance noting bilatera l ocular lens implants. Sinuses and mastoids: Clear. Calvarium: Unremarkable. Cervical cord: Partially visualized cervical spinal cord is normal in morphology and signal intensity . IMPRESSION: 1. There is irregular focus of restricted diffusion identified within the morena, likely representing a n acute to subacute lacunar infarct. Clinical correlation will be required. 2. No additional foci of acute ischemia are identified. 3. There is no hemorrhage or mass effect. 4. Chronic changes as above. ACT 112: Negative or not required by law. Electronically signed by: Shai Viera M.D. 09/12/2022 7:13 AM
[2022-09-12 07:40] LABS: BUN Creatinine Ratio 32.7 (10-20); Calcium 7.9 mg/dl (8.5-10.1); Creatinine Clr Calc Pharmacy 13.3 ml/min; Est GFR (African American) 22.4 ml/min; Est GFR (Non-African American) 19.3 ml/min; Magnesium 1.6 mg/dl (1.7-2.4); Phosphorus 2.2 mg/dl (2.5-4.9); Potassium 3.4 mmol/L (3.5-5.1)
[2022-09-12] MEDS: ATORVASTATIN 40 MG TAB PO SCH (09:28)
[2022-09-12] MEDS: PANTOprazole 40 MG in SYRINGE 0 ML IV SCH ×2 (09:28→21:52)
[2022-09-12] MEDS: METOPROLOL TARTRATE 25 MG TAB PO SCH ×2 (09:28→22:19)
[2022-09-12] MEDS ORDERED: LANTUS PER UNIT CHARGE SQ ONE (09:30)
[2022-09-12] MEDS: SODIUM CHLORIDE 0.9% 1000ML 1,000 ML IV SCH ×2 (10:03→22:35)
[2022-09-12] MEDS: POTASSIUM CHLORIDE / WTR 10 MEQ/100 ML PLCT IV SCH ×2 (10:05→11:32)
[2022-09-12] MEDS: D5W AND 1/2NSS + 20MEQ KCL 20 MEQ/1,000 ML BAG IV SCH (10:17)
--- NOTE | 2022-09-12 10:44 | Pharmacy Report ---
Pharmacy Glycemic Short Note 2 - Date of Service September 12, 2022 - Glycemic Short BSG Results (Last 24 hours): 09/11/22 09/11/22 09/11/22 14:32 15:14 18:32 Glucose 532 H* POC Glucose 506 H* 461 H* 09/11/22 09/11/22 09/11/22 19:44 21:19 21:35 Glucose 202 H POC Glucose 389 H* 204 H 09/11/22 09/11/22 09/12/22 22:26 23:32 00:27 Glucose POC Glucose 153 H 113 H 125 H 09/12/22 09/12/22 09/12/22 01:33 01:40 02:30 Glucose 178 H POC Glucose 180 H 200 H 09/12/22 09/12/22 09/12/22 03:33 04:34 06:36 Glucose POC Glucose 201 H 204 H 170 H 09/12/22 09/12/22 09/12/22 06:37 08:47 10:00 Glucose 170 H POC Glucose 144 H 143 H OUTPATIENT ANTIDIABETIC REGIMEN: * None * Unknown HbA1c - ordered for today ASSESSMENT: * 86 yo F w hx diabetes noted but not on any outpatient diabetes medications admitted with AMS and possible DKA due to slight elevation in anion gap and slightly low CO2 in the context of severe hyperglycemia > 500 mg/dL * Insulin drip initiated - rates and BSG's trended down overnight with no Lantus administered. Currently running at 2 units/hr with BSG of 144 mg/dL this AM * Anion gap closed, CO2 wnl * Discussed w Dr. Shay MARTELL to transition off insulin drip. Fluids were switched from [id number] IVF to NS this AM * Patient remains NPO for now. Diet may or may not be ordered later today * Will give a very low dose of Lantus to transition due to NPO status, stopping D5W fluids, plus low rates of insulin drip * Will start weight-based moderate stress Novolog * OK to stop drip 2-6 hours after Lantus administration PLAN FOR INPATIENT GLYCEMIC CONTROL: * Basal insulin * Lantus 10 units SQ x1 then 0-10 units BID based on BSG * Bolus insulin * NovoLog per scale ACHS or Q6hrs while NPO * Goal Range: Low 120 mg/dL - High 160 mg/dL * Correction Factor: 45 mg/dL/unit * Nutritional / Prandial insulin per carb ratio of 1 unit per 14 grams CHO consumed
[2022-09-12 11:53] LABS: Hematocrit (blood only) 33.9 % (34.1-44.9); Hemoglobin 11.3 g/dl (12.0-16.0); Mean Corpuscular Hgb Conc 33.3 g/dL (32.0-36.0); Mean Corpuscular Volume 84.1 fL (80.0-100.0); Mean Platelet Volume 11.5 fL (9.4-12.3); Platelet Count 347 K/uL (130-400); RDW Coefficient of Variation 13.3 % (11.5-14.5); Red Blood Count 4.03 M/uL (3.93-5.22); White Blood Count 11.56 K/ul (4.8-10.8)
[2022-09-12 12:20] LABS: BUN Creatinine Ratio 31.9 (10-20); Calcium 8.4 mg/dl (8.5-10.1); Creatinine Clr Calc Pharmacy 14.7 ml/min; Est GFR (African American) 25.3 ml/min; Est GFR (Non-African American) 21.8 ml/min; Magnesium 1.6 mg/dl (1.7-2.4); Potassium 3.6 mmol/L (3.5-5.1)
[2022-09-12 13:51] LABS: Estimated Average Glucose > 438 mg/dl; Hemoglobin A1C > 16.9 % (4.5-5.6)
--- NOTE | 2022-09-12 14:01 | XCELERA ---
[id number] \\[id number]
[2022-09-12] MEDS: POT PHOSPHATE MONOBASIC W/ SOD TAB PO SCH ×3 (14:09→22:19)
[2022-09-12 15:36] LABS: Creatinine Clr Calc Pharmacy 15.3 ml/min; Est GFR (African American) 26.4 ml/min; Est GFR (Non-African American) 22.8 ml/min; Magnesium 1.7 mg/dl (1.7-2.4); Phosphorus 1.8 mg/dl (2.5-4.9); Potassium 3.7 mmol/L (3.5-5.1)
[2022-09-12] MEDS: INSULIN ASPART PER UNIT SC SCH ×5 (17:10→21:51)
[2022-09-12] MEDS ORDERED: INSULIN ASPART PER UNIT SC SCH (18:00)
[2022-09-12 18:44] LABS: BUN Creatinine Ratio 30.1 (10-20); Calcium 8.1 mg/dl (8.5-10.1); Creatinine Clr Calc Pharmacy 15.3 ml/min; Est GFR (African American) 26.6 ml/min; Est GFR (Non-African American) 22.9 ml/min; Magnesium 1.6 mg/dl (1.7-2.4); Phosphorus 2.6 mg/dl (2.5-4.9); Potassium 4.2 mmol/L (3.5-5.1)
[2022-09-12] MEDS: LANTUS PER UNIT CHARGE SQ SCH (21:51)
--- NOTE | 2022-09-12 22:34 | Hospitalist Progress Note ---
Date of Service September 12, 2022 Assessment & Plan (1) DKA (diabetic ketoacidosis): Plan: -Admit to the PCU -Patient is currently afebrile, hemodynamically stable, and stable on RA -BSG noted to be 532 in the ED, AG of 12 with bicarb of 12, while she was not acidotic on her VBG it looks as though she was entering into an acidosis -Unclear of the exact etiology of her DKA at this time, suspect infection at this time with multiple possible etiologies including possible UTI, septic arthritis of the right wrist S/P steroid injection, or occult abdominal infection -Having nursing staff place gray and obtain UA, ordering xray of the right wrist to monitor for signs of infection, will get stool studies including C. diff to rule out gastrointestinal infection -Was given NSS and a dose of ceftriaxone in the ED, had the ED start DKA protocol prior to admission -Continue with DKA protocol, initial potassium was noted to be 3.5, ordered 10 meq IV KCL to be given now, will continue with IV hydration with LR at 100 mL/hr x 2 bags, will continue with IV fluid hydration if she still cannot take po intake later tonight -For now will switch patient to zosyn and unasyn for broad coverage until her infectious workup is resulted -Monitor BMP, mag, and phos q4h while on insulin drip -Will order A1c for the am for better monitoring of her blood glucose control On 1215 patients A!C was above the upper limit >16 This likely provoked her altered mental status. She will need to be on insulin. will monitor her blood sugars. while also treating for possible cystitis. (2) AMS (altered mental status): Plan: -Patient noted to have significant change in mental status over the past 48-72 hours, also noted to be slurring words and ambulatory dysfunction -Concern for possible stroke earlier in the week, CT head in the ED was negative for acute findings, will obtain MRI of the brain and TTE with bubble study for further evaluation -There is liekly also a metabolic/infectious component to her AMS at this time as well, continue to monitor mental status with treatment of her DKA and possible infection Appears to have resolved on 09/12 no longer slurring words. likely a combination of her DKA (3) High anion gap metabolic acidosis: Plan: -Likely from her DKA, lactate was WNL in the ED -Continue to treat DKA and possible infections and monitor for improvement on q4h DKA labs -If her acidosis and renal function would continue to decline would consider the addition of Sodium bicarb (4) ESTHER (acute kidney injury): Plan: -Cr noted to be 2.7 today, cr was 1.40 as of 08/10/21 -Unclear of patient's baseline since last year, also unsure if her baseline changed after her recent episode of rhabdo prior to moving to [facility]. Patient was also consistently taking Naproxen and Ibuprofen daily for OA pain, this could be contributing to her poor renal function -Continue with IV hydration, DKA treatment, and antibiotics -Placed forley for better monitoring of her intake and output -Montior renal function q4h on BMP, if she continues to worsen would consult nephrology (5) Hyponatremia: Plan: -Noted to be 130 today after correcting for her glucose of 532 -Likely from poor oral intake, dehydration, and possible ATN -Monitor sodium on q4h BMP, if significant change on repeat would touch base with Nephrology (6) Aortic stenosis: Plan: -Known to have severe -Follows with Dr. Oquendo -GURPREET with TTE tomorrow -Monitor for volume overload while on IV fluids (7) Benign essential hypertension: Plan: -Currently hemodynamically stable -Hold lisinopril and lasix for Esther and electrolyte abnormalities -Will continue metoprolol for now Plan The patient was discussed with Dr. Day at the time of the admission Admission and Anticipated Discharge Date Admission Date: September 11, 2022 Subjective 86 yo female reports feeling better. She is intermittently confused. Review of Systems Review of Systems: All systems reviewed & are unremarkable except as noted in HPI & below Physical Exam Physical Exam: General:In no acute distress, stated age,malnourished, chronically ill-appearing HEENT:Normocephalic, atraumatic, no scleral icterus, pupils around round, symmetrical, and reactive to light,drymucus membranes, trachea midline, no thyromegaly Chest/Pulm:No respiratory distress, symmetrical chest expansion, clear breath sounds throughout Cardiac:RRR, 5/6 systolic murmur heard best in the aortic area with radiation to the carotids Abdomen:Negative for ascites and bruising, normoactive bowel sounds, soft, non-tender to palpation throughout Musculoskeletal:Patient with intak ROM of the BL upper and lower extremities, right wrist is currently wrapped due to attempts to place IV, no significant swelling, erythema, or pain upon movement or palpation of the wrist. Patient with small, non-infected skin tear on the second left toe, no other acute trauma noted. Able to flex head and turn her head to the left/right without stiffness or pain Extremities:Radial, dorsalis pedis, and posterior tibial pulses are intact and symmetrical, no edema noted in the BL LE's Skin:Patient with pressure ulcer and minor skin breakdown on the sacrum, no current drainage at this time Neuro:Alert and oriented to person and month only, place,CN II-XII tested and intact,, no tremors noted Psych:No acute distress, calm and cooperative during the exam Results & Data Results & Data ([facility]) Vital Signs (Past 12 Hours) Vital Signs Temp Pulse Resp BP Pulse Ox Pulse Ox O2 Del Method 09/12/22 19:47 36.6 C 58 L 18 114/55 L 98 Room Air 09/12/22 15:00 Room Air 09/12/22 15:00 36.7 C 62 20 121/78 99 Room Air 09/12/22 15:00 99 09/12/22 10:53 36.7 C 68 19 118/57 L 99 Room Air 09/12/22 10:39 Room Air O2 Del Method 09/12/22 19:47 09/12/22 15:00 09/12/22 15:00 09/12/22 15:00 Room Air 09/12/22 10:53 09/12/22 10:39 PG Care Time/CCT Total # of Minutes Spent Total Time Spent with Patient: Total time spent is greater than 50% in coordination of care (as documented) at patient's floor/unit and/or counseling patient: Coding Level of Care Code 37461 Subseq Hosp Care Lvl 2 Diagnoses DKA (diabetic ketoacidosis) E11.10 AMS (altered mental status) R41.82 Altered mental status type: unspecified High anion gap metabolic acidosis E87.29 ESTHER (acute kidney injury) N17.9 Hyponatremia E87.1 Aortic stenosis I35.0 Benign essential hypertension I10 Time Spent (min) 25 (1) AMS (altered mental status) Altered mental status type: unspecified Qualified Code(s): R41.82 - Altered mental status, unspecified
[2022-09-13] MEDS: PIPERACILLIN/TAZOBACTAM 3.375 GM in DEXTROSE 5% 100 ML IV SCH (05:16)
[2022-09-13 07:46] LABS: Hematocrit (blood only) 31.8 % (34.1-44.9); Hemoglobin 10.5 g/dl (12.0-16.0); Mean Corpuscular Hemoglobin 28.5 pg (25.0-34.0); Mean Corpuscular Volume 86.2 fL (80.0-100.0); Mean Platelet Volume 11.2 fL (9.4-12.3); Platelet Count 317 K/uL (130-400); RDW Coefficient of Variation 13.8 % (11.5-14.5); Red Blood Count 3.69 M/uL (3.93-5.22); White Blood Count 7.12 K/ul (4.8-10.8)
[2022-09-13 08:04] LABS: BUN Creatinine Ratio 31.5 (10-20); Calcium 7.8 mg/dl (8.5-10.1); Creatinine Clr Calc Pharmacy 20.2 ml/min; Est GFR (Non-African American) 31.9 ml/min; Potassium 3.4 mmol/L (3.5-5.1)
[2022-09-13] MEDS: INSULIN ASPART PER UNIT SC SCH ×4 (08:27→21:20)
--- NOTE | 2022-09-13 09:16 | Gastrointestinal Consultation ---
Date of Consultation September 13, 2022 Assessment & Plan (1) DKA (diabetic ketoacidosis): (2) Acute CVA (cerebrovascular accident): (3) Anemia: Plan 1. No plan for invasive GI work up at this time. 2. Reconsider if overt GIB or significant drop in H&H. 3. Continue Pantoprazole 40 mg BID. 4. Rest per primary team. Thank you for allowing us to participate in the care of this patient. If you have any questions or concerns, please do not hesitate to contact us. History of Present Illness Reason for Consultation: UGIB Requesting Physician: Dr. Day Attending Physician: Luan Day History of Present Illness Patient is a 86 y.o. female with a history of HTN, DM, and OA admitted with DKA and acute mental status changes and abnormal MRI with findings of "acute to subacute lacunar infarct" being referred for GI consultation in regard to anemia and concern for UGIB. Patient denies any overt GIB symptoms. H&H on admission was noted to be 11.4/33.7 and was 10.7/31.8 today. She denies any abdominal pain, n/v or other complaints. Allergies Allergy/AdvReac Type Severity Reaction Status Date / Time No Known Allergies Allergy Verified 09/11/22 17:02 Home Medications Medication Instructions Recorded Confirmed Type furosemide 40 mg tablet 40 mg PO DAILY 09/02/22 09/11/22 History ibuprofen 600 mg tablet 600 mg PO Q8H PRN Pain 09/02/22 09/11/22 History lisinopril 10 mg tablet 10 mg PO BID 09/02/22 09/11/22 History naproxen sodium 220 mg tablet 440 mg PO DAILY 09/02/22 09/11/22 History atorvastatin 40 mg tablet 40 mg PO DAILY 09/11/22 09/11/22 History metoprolol tartrate 25 mg tablet 25 mg PO BID 09/11/22 09/11/22 History Patient History Medical History Ambulatory dysfunction Aortic stenosis Atherogenic dyslipidemia Benign essential hypertension Diabetes Extensor tenosynovitis of right wrist Impingement of right shoulder Primary osteoarthritis, right wrist TIA (transient ischemic attack) Weakness Social History Smoking Status: Never smoker Hx Alcohol Use: No Hx Substance Use: No Preferred Language: Frisian Communication Ability: Effective Diplomatic Interpreter Required: No Beliefs That Will Affect Care: None Current Living Situation: Family Current Living Situation Comment: lives with son kimo Other Information That Helps Us Care for You: No Feels Safe at Home: Yes Safety Concerns: Feels Safe At This Time Assistive Devices: Cane Review of Systems Constitutional: + fatigue Respiratory: no cough and no dyspnea Cardiovascular: no chest pain and no palpitations Gastrointestinal: as per Subjective / HPI Physical Exam Constitutional: + frail appearing; no acute distress Eyes: + anicteric sclerae and EOM intact bilaterally Neck: normal visual inspection Respiratory: normal respiratory effort, lungs clear to auscultation Cardiovascular: Rate/Rhythm: regular rate and regular rhythm Heart Sounds: + murmur Gastrointestinal (Abdomen): Inspection/Auscultation: normal bowel sounds; abdomen not distended Percussion/Palpation: abdomen soft; abdomen nontender Musculoskeletal: Extremities: extremities normal to inspection Skin: warm and dry Psychiatric: A+Ox3, euthymic affect Results & Data ([facility]) Vital Signs (Past 12 Hours) Vital Signs Temp Pulse Pulse Resp BP BP Pulse Ox 09/13/22 08:16 36.5 C 59 L 18 132/73 96 09/13/22 07:13 09/13/22 07:13 56 L 09/13/22 03:18 37.0 C 55 L 18 111/60 97 09/13/22 01:07 57 L 09/12/22 22:57 36.7 C 56 L 18 113/55 L 100 O2 Del Method 09/13/22 08:16 Room Air 09/13/22 07:13 Room Air 09/13/22 07:13 09/13/22 03:18 Room Air 09/13/22 01:07 09/12/22 22:57 Room Air Diagnostic Findings Laboratory Results WBC 7.12 K/ul (4.8-10.8) 09/13/22 07:31 RBC 3.69 M/uL (3.93-5.22) L 09/13/22 07:31 Hgb 10.5 g/dl (12.0-16.0) L 09/13/22 07:31 Hct 31.8 % (34.1-44.9) L 09/13/22 07:31 MCV 86.2 fL (80.0-100.0) 09/13/22 07:31 MCH 28.5 pg (25.0-34.0) 09/13/22 07:31 MCHC 33.0 g/dL (32.0-36.0) 09/13/22 07:31 RDW Std Deviation 43.0 fL (36.4-46.3) 09/13/22 07:31 RDW Coeff of Germain 13.8 % (11.5-14.5) 09/13/22 07:31 Plt Count 317 K/uL (130-400) 09/13/22 07:31 MPV 11.2 fL (9.4-12.3) 09/13/22 07:31 Immature Gran % (Auto) 0.6 % 09/11/22 15:14 Neut % (Auto) 76.8 % 09/11/22 15:14 Lymph % (Auto) 15.2 % 09/11/22 15:14 [place] % (Auto) 6.1 % 09/11/22 15:14 Eos % (Auto) 1.0 % 09/11/22 15:14 Baso % (Auto) 0.3 % 09/11/22 15:14 Neut # (Auto) 10.03 K/uL (1.4-6.5) H 09/11/22 15:14 Lymph # (Auto) 1.98 K/uL (1.2-3.4) 09/11/22 15:14 [place] # (Auto) 0.80 K/uL (0.24-0.82) 09/11/22 15:14 Eos # (Auto) 0.13 K/uL (0-0.50) 09/11/22 15:14 Baso # (Auto) 0.04 K/uL (0-0.2) 09/11/22 15:14 Immature Gran # (Auto) 0.08 K/uL (0.00-0.02) H 09/11/22 15:14 ESR 33 mm/hr (0-30) H 09/11/22 15:14 PT 10.9 Seconds (9.0-12.0) 09/11/22 15:14 INR 1.0 (0.9-1.1) 09/11/22 15:14 APTT 24.7 Seconds (21.0-31.0) 09/11/22 15:14 PTT Ratio 0.9 09/11/22 15:14 ABG pH 7.39 (7.35-7.45) 09/11/22 15:14 ABG pCO2 36 mmHg (35-46) 09/11/22 15:14 ABG pO2 100 mmHg (80-95) H 09/11/22 15:14 ABG HCO3 22 mmol/L (19-24) 09/11/22 15:14 ABG O2 Saturation 99.5 % (90-95) H 09/11/22 15:14 ABG Base Excess -2.6 mEq/L (-9-1.8) 09/11/22 15:14 Campos Test Pos (Pos) 09/11/22 15:14 Oxygen Given ROOM AIR 09/11/22 15:14 Sodium 139 mmol/L (136-145) 09/13/22 07:31 Potassium 3.4 mmol/L (3.5-5.1) L 09/13/22 07:31 Chloride 110 mmol/L (98-107) H 09/13/22 07:31 Carbon Dioxide 21 mmol/L (21-32) 09/13/22 07:31 Anion Gap 8 (3-11) 09/13/22 07:31 BUN 47 mg/dl (6-23) H 09/13/22 07:31 Creatinine 1.49 mg/dl (0.6-1.2) H D 09/13/22 07:31 Est Cr Clr Drug Dosing 20.2 ml/min 09/13/22 07:31 Est GFR ( Amer) 37.0 ml/min 09/13/22 07:31 Est GFR (Non-Af Amer) 31.9 ml/min 09/13/22 07:31 BUN/Creatinine Ratio 31.5 (10-20) H 09/13/22 07:31 Glucose 133 mg/dl (70-99(Fasting)) H 09/13/22 07:31 POC Glucose 87 mg/dl (70-99) 09/13/22 07:20 Estimat Average Glucose > 438 mg/dl 09/12/22 11:30 Hemoglobin A1c > 16.9 % (4.5-5.6) H 09/12/22 11:30 Lactate 0.6 mmol/L (0.4-2.0) 09/11/22 15:14 Calcium 7.8 mg/dl (8.5-10.1) L 09/13/22 07:31 Phosphorus 2.6 mg/dl (2.5-4.9) 09/12/22 18:12 Magnesium 1.6 mg/dl (1.7-2.4) L 09/12/22 18:12 Total Bilirubin 0.4 mg/dl (0.2-1.0) 09/11/22 15:14 Direct Bilirubin 0.1 mg/dl (0-0.2) 09/11/22 15:14 AST 7 U/L (13-39) L 09/11/22 15:14 ALT 9 U/L (7-52) 09/11/22 15:14 Alkaline Phosphatase 84 U/L (34-104) 09/11/22 15:14 Troponin I High Sens 24.3 pg/ml (0-14) H 09/11/22 18:00 C-Reactive Protein 1.01 mg/dl (0-0.5) H 09/11/22 15:14 C-Reactive Protein Cancelled 09/11/22 15:14 Total Protein 5.6 gm/dl (6.0-8.3) L 09/11/22 15:14 Albumin 2.9 gm/dl (3.4-5.0) L 09/11/22 15:14 Procalcitonin 0.17 ng/ml (0-0.5) 09/11/22 15:14 TSH 1.747 uIu/ml (0.300-4.500) 09/11/22 18:00 Urine Color Yellow 09/12/22 02:30 Urine Appearance Cloudy (Clear) A 09/12/22 02:30 Urine pH 5.0 (4.5-7.5) 09/12/22 02:30 Ur Specific [place] 1.015 (1.000-1.030) 09/12/22 02:30 Urine Protein Negative (Negative) 09/12/22 02:30 Urine Glucose (UA) Negative (Negative) 09/12/22 02:30 Urine Ketones Negative (Negative) 09/12/22 02:30 Urine Blood Trace (Negative) H 09/12/22 02:30 Urine Nitrite Negative (Negative) 09/12/22 02:30 Urine Bilirubin Negative (Negative) 09/12/22 02:30 Urine Urobilinogen Negative (Negative) 09/12/22 02:30 Ur Leukocyte Esterase 2+ (Negative) H 09/12/22 02:30 Urine WBC (Auto) >30 /hpf (0-5) H 09/12/22 02:30 Urine RBC (Auto) 5-10 /hpf (0-4) H 09/12/22 02:30 U Hyaline Cast (Auto) 5-10 /lpf (0-5) H 09/12/22 02:30 U Epithel Cells (Auto) >30 /lpf (0-5) H 09/12/22 02:30 Urine Bacteria (Auto) 1+ (Negative) H 09/12/22 02:30 Ur Renal Epithelial Cell Not Reportable 09/12/22 02:30 SARS-CoV-2 (PCR) NEGATIVE (Negative) 09/11/22 Unknown Influenza Type A (PCR) Negative (Neg) 09/11/22 Unknown Influenza Type B (PCR) Negative (Neg) 09/11/22 Unknown RSV (RT-PCR) Negative (Neg) 09/11/22 Unknown Impressions Chest X-Ray 09/11/22 14:31 XR chest 1V portable HISTORY: 86 years-old Female Sepsis acute sepsis COMPARISON: None TECHNIQUE: AP view of the chest FINDINGS: Heart is upper limits of normal in size. Mitral annular calcifications. No pneumothorax, pleural effusion, airspace consolidation or overt pulmonary edema. Degenerative changes of the shoulders and spine. Mild lumbar levoscoliosis. IMPRESSION: No acute process. ACT 112: Negative or not required by law. The above report was generated using voice recognition software. It may contain grammatical, syntax or spelling errors. Electronically signed by: Manuel Joaquin M.D. 09/11/2022 2:[address] 09/11/22 14:[address] DOSE: HISTORY: Altered mental status. TECHNIQUE: Multiaxial CT images of the head were performed without the use of intravenous contrast. Automated exposure control was utilized for this study. A dose lowering technique was utilized adhering to the principles of ALARA. Comparison: None. Findings: The paranasal sinuses and mastoid air cells are clear. The calvarium and skull base are intact. There is no mass, hematoma, midline shift, acute infarct. White matter hypodensity is nonspecific but suggestive of moderate microvascular ischemic change. The ventricles and sulci demonstrate mild age- related involutional changes. 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 Impression: No acute intracranial abnormality. Old left basal ganglia infarct. ACT 112: Negative or not required by law. Electronically signed by: Eusebio Barnett M.D. 09/11/2022 3:48 PM Abdomen/Pelvis CT 09/11/22 14:33 CT SCAN OF THE ABDOMEN AND PELVIS WITHOUT IV CONTRAST CLINICAL HISTORY: Abdominal distention COMPARISON STUDY: No priors. TECHNIQUE: CT scan of the abdomen and pelvis is performed from the lung bases to the proximal femora. Images are reviewed in the axial, sagittal, and coronal planes. IV contrast was not administered for this examination. Note that the examination is suboptimal without oral and IV contrast. A dose lowering technique was utilized adhering to the principles of ALARA. CT DOSE: 957.11 mGy.cm FINDINGS: Lung bases: The heart is enlarged and without pericardial effusion. The coronary arteries and mitral annulus are densely calcified. A 3 mm pulmonary nodule the left lung base as seen on image #5. The lung bases are otherwise clear noting bibasilar scarring/atelectasis. A small hiatal hernia is noted. Liver: The unenhanced liver is normal in size, contour, and attenuation. There is no intrahepatic biliary ductal dilatation. Gallbladder: Unremarkable. Spleen: Normal in size and attenuation. Pancreas: The unenhanced pancreas is moderately atrophic and grossly unremarkable. Adrenal glands: Unremarkable. Kidneys: The unenhanced kidneys demonstrate cortical atrophy and are without hydronephrosis. There are no renal calculi identified. A 2.0 cm cyst is noted in the left upper pole. 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 Abdominal vasculature: The abdominal aorta is normal in course and caliber noting moderate to advanced atherosclerotic calcification. Bowel: Question mild wall thickening of the duodenum with faint surrounding infiltration. There is mild to moderate colonic fecal retention. No bowel obstruction is seen. The appendix is well-visualized and normal. Peritoneum: There is no intraperitoneal free air or abdominal ascites. Lymphadenopathy: None. Pelvic viscera: There is gas within the bladder lumen. The bladder is otherwise normal as visualized. Uterus and adnexa are grossly unremarkable. Skeletal structures: The skeletal structures are heterogeneously osteopenic. There is moderate to advanced lumbosacral spondylosis. No lytic or blastic lesions are seen. IMPRESSION: 1. Question mild wall thickening of the duodenum with faint surrounding infiltration. Correlate clinically for evidence of duodenitis or possibly ulcer disease. This could be further assessed with endoscopy if clinically warranted. 2. [id number] colonic fecal retention. 3. Gas within the bladder lumen is nonspecific and may be related to instrumentation. Correlate with clinical findings and urinalysis. 4. Additional findings as above. ACT 112: Negative or not required by law. Electronically signed by: Shai Viera M.D. 09/11/2022 3:57 PM Brain MRI 09/11/22 17:17 MRI OF THE BRAIN WITHOUT IV CONTRAST CLINICAL HISTORY: Strokelike symptoms. Change in mental status. Difficulty with speech and ambulation. COMPARISON STUDY: CT of the brain dated 09/11/2022. TECHNIQUE: MRI of the brain was performed utilizing various T1 and T2-weighted sequences in the axial, sagittal, and coronal planes. IV contrast was not administered for this examination. FINDINGS: Brain parenchyma: There is age-related involutional change noting moderate to advanced confluent subcortical and periventricular microangiopathic disease. There is an irregular region of restricted diffusion identified in the morena which measures up to 11 mm in dimension. This likely represents an acute to subacute lacunar infarct. No additional foci of restricted diffusion are identified. Chronic infarcts are noted in the left basal ganglia and the left thalamus. There is no hemorrhage or mass effect. No extra-axial fluid collection is seen. The cerebellar tonsils are normal in configuration. Ventricles, sulci, and cisterns: Prominent secondary to involutional change. Pituitary and sella: Unremarkable. Intracranial vasculature: Normal flow voids are maintained at the skull base. Orbits: The bony orbits are grossly intact. Orbital contents are normal in appearance noting bilateral ocular lens implants. Sinuses and mastoids: Clear. Calvarium: Unremarkable. Cervical cord: Partially visualized cervical spinal cord is normal in morphology and signal intensity. IMPRESSION: 1. There is irregular focus of restricted diffusion identified within the morena, likely representing an acute to subacute lacunar infarct. Clinical correlation will be required. 2. No additional foci of acute ischemia are identified. 3. There is no hemorrhage or mass effect. 4. Chronic changes as above. ACT 112: Negative or not required by law. Electronically signed by: Shai Viera M.D. 09/12/2022 7:13 AM Wrist X-Ray 09/11/22 17:17 XR wrist RT 2V HISTORY: 86 years-old Female monitor for signs of infection acute right wrist pain with possible infection COMPARISON: ] Hand radiographs 08/28/2022 TECHNIQUE: 2 views of the right wrist FINDINGS: Demineralized appearance of the bones. Multiple articulation osteoarthritis, severe within the first carpal metacarpal joint. There is no acute fracture, dislocation or osseous erosion. Arterial calcifications. IMPRESSION: No acute fracture or dislocation. ACT 112: Negative or not required by law. The above report was generated using voice recognition software. It may contain grammatical, syntax or spelling errors. Electronically signed by: Manuel Joaquin M.D. 09/11/2022 5:36 PM PG Care Time/CCT Total # of Minutes Spent Total Time Spent with Patient: Total time spent is greater than 50% in coordination of care (as documented) at patient's floor/unit and/or counseling patient: Coding Level of Care Code 36489 Initial Inpt Care Lvl 3 Diagnoses DKA (diabetic ketoacidosis) E11.10 Acute CVA (cerebrovascular accident) I63.9 Anemia D64.9
[2022-09-13] MEDS: LANTUS PER UNIT CHARGE SQ SCH ×2 (09:40→21:20)
[2022-09-13] MEDS: ATORVASTATIN 40 MG TAB PO SCH (09:41)
[2022-09-13] MEDS: PANTOprazole 40 MG in SYRINGE 0 ML IV SCH ×2 (09:41→20:31)
[2022-09-13] MEDS: POT PHOSPHATE MONOBASIC W/ SOD TAB PO SCH (09:41)
[2022-09-13] MEDS: METOPROLOL TARTRATE 25 MG TAB PO SCH (09:41)
[2022-09-13] MEDS: SODIUM CHLORIDE 0.9% 1000ML 1,000 ML IV SCH ×2 (11:35→23:35)
--- NOTE | 2022-09-13 11:54 | Pharmacy Report ---
Pharmacy Glycemic Short Note 2 - Date of Service September 13, 2022 - Glycemic Short BSG Results (Last 24 hours): 09/12/22 09/12/22 09/12/22 07:31 11:30 12:10 Glucose 138 H POC Glucose 158 H 126 H 09/12/22 09/12/22 09/12/22 13:07 14:07 14:43 Glucose 151 H POC Glucose 114 H 119 H 09/12/22 09/12/22 09/12/22 15:06 16:04 18:12 Glucose 184 H POC Glucose 154 H 194 H 09/12/22 09/13/22 09/13/22 21:47 07:20 07:31 Glucose 133 H POC Glucose 180 H 87 OUTPATIENT ANTIDIABETIC REGIMEN: * None * HbA1c: > 16.9% (09/12/22) ASSESSMENT: 09/13: * A1c demonstrates very poor outpatient control of diabetes. Patient received ~40 units of insulin yesterday, 15 units basal + 2 units bolus + ~23 units from the insulin drip prior to it shutting off. * Fasting BSG this AM was 87 mg/dL. Will reduce basal scale today. Patient does remain NPO. * Lunchtime BSG was 90 mg/dL. Will loosen carb ratio. 09/12: * 86 yo F w hx diabetes noted but not on any outpatient diabetes medications admitted with AMS and possible DKA due to slight elevation in anion gap and slightly low CO2 in the context of severe hyperglycemia > 500 mg/dL * Insulin drip initiated - rates and BSG's trended down overnight with no Lantus administered. Currently running at 2 units/hr with BSG of 144 mg/dL this AM * Anion gap closed, CO2 wnl * Discussed w Dr. Shay MARTELL to transition off insulin drip. Fluids were switched from [id number] IVF to NS this AM * Patient remains NPO for now. Diet may or may not be ordered later today * Will give a very low dose of Lantus to transition due to NPO status, stopping D5W fluids, plus low rates of insulin drip * Will start weight-based moderate stress Novolog * OK to stop drip 2-6 hours after Lantus administration PLAN FOR INPATIENT GLYCEMIC CONTROL: * Basal insulin * Lantus 0-5 units SC BID based on BSG * Bolus insulin * NovoLog per scale ACHS or Q6hrs while NPO * Goal Range: Low 110 mg/dL - High 140 mg/dL * Correction Factor: 45 mg/dL/unit * Nutritional / Prandial insulin per carb ratio of 1 unit per 15 grams CHO consumed
[2022-09-13] MEDS: POTASSIUM CHLORIDE CRTAB 20 MEQ TABCR PO SCH ×2 (12:55→20:31)
[2022-09-13] MEDS: cefTRIAXone SODIUM 1,000 MG Advantage IV SCH (12:55)
[2022-09-13] MEDS ORDERED: PIPERACILLIN/TAZOBACTAM 3.375 GM in DEXTROSE 5% 100 ML IV SCH (13:00)
--- NOTE | 2022-09-13 16:43 | Cardiology Consultation ---
Date of Consultation September 13, 2022 Assessment & Plan (1) Acute CVA (cerebrovascular accident): Patient will need to follow with neurology as an outpatient. Sooner rather than later would be ideal. Agree that she will benefit from physical therapy/rehab. Etiology of her CVA is not clear. Most likely related to hypertension, diabetes, atherosclerosis and advanced age. She does not have evidence of intracardiac shunt. Prior JOSE did not demonstrate PFO. No evidence of LV thrombus. However, with significant valvular heart disease she is at risk for occult atrial fibrillation/atrial flutter. Thus far, we have not been able to identify either of these arrhythmias. Once she is discharged I will have her undergo protracted cardiac monitoring. Should we identify 1 of these arrhythmias then she would be a candidate for oral anticoagulation to reduce the likelihood of recurrent CVA. In the meantime, aspirin or Plavix would be therapy of choice. (2) Aortic stenosis: This is moderate to severe. With recent CVA and decline in her functional capability she is not currently a candidate for aortic valve replacement either percutaneously or surgically. Should she recover adequately and her functional capacity improve she may be a candidate for TAVR in the future. Unlikely that she would be deemed sufficiently low risk to undergo SAVR. (3) Benign essential hypertension: She should resume prior outpatient regimen with metoprolol and lisinopril. 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 High intensity statin therapy with atorvastatin 40 mg daily is recommended. Plan Patient should follow-up with me in the cardiology office within 2 to 4 weeks of discharge. History of Present Illness Reason for Consultation: Cardiac management Attending Physician: Luan Day History of Present Illness This is a pleasant 86-year-old female well-known to me. She has a history of moderate to severe aortic stenosis which previously had been asymptomatic. Recently admitted to the hospital in [place] after she fell and was on the ground for 2 days. Reported to have had rhabdomyolysis. Details regarding the remainder of her work-up and treatment is unavailable to me at this time. I saw her in follow-up 11 days ago in the cardiology office. At that time, I noted a significant decline in her clinical status compared to the last time I saw her as an outpatient. She seemed to have slurred speech and her family states that had been occurring since her discharge from the hospital in [place]. She also had profound lower extremity weakness and some right upper extremity weakness. A neurology consultation was requested regarding possible stroke versus other systemic neurological pathology. On current admission the patient came in for rapid decline in neurologic and functional capabilities. She was found to have severely elevated blood sugar and evidence of infection. Neurologic imaging was completed confirming subacute CVA. She was treated with antibiotics for infection. Her blood sugar has been treated and she is now feeling much better. Plan is for discharge to rehab. I am asked to see her because I follow her chronically for her significant cardiac disease. Patient denies chest pain now or recently. No shortness of breath. No syncope, near syncope, orthopnea, PND, racing heartbeat, palpitations, or edema. Her strength has improved somewhat. She is more coherent and she states that she feels well. Her son is present at the bedside and confirms that she is much better than previous. She voices no other complaints or concerns at this time. I reviewed the monitor strips and note that she is in sinus rhythm with frequent PACs and occasional PVCs. There were some irregular rhythms with significant artifact so it is difficult to tell if she has sinus rhythm at that time or atrial fibrillation. Allergies Allergy/AdvReac Type Severity Reaction Status Date / Time No Known Allergies Allergy Verified 09/11/22 17:02 Home Medications Medication Instructions Recorded Confirmed Type furosemide 40 mg tablet 40 mg PO DAILY 09/02/22 09/11/22 History ibuprofen 600 mg tablet 600 mg PO Q8H PRN Pain 09/02/22 09/11/22 History lisinopril 10 mg tablet 10 mg PO BID 09/02/22 09/11/22 History naproxen sodium 220 mg tablet 440 mg PO DAILY 09/02/22 09/11/22 History atorvastatin 40 mg tablet 40 mg PO DAILY 09/11/22 09/11/22 History metoprolol tartrate 25 mg tablet 25 mg PO BID 09/11/22 09/11/22 History Patient History Medical History Ambulatory dysfunction Aortic stenosis Atherogenic dyslipidemia Benign essential hypertension Diabetes Extensor tenosynovitis of right wrist Impingement of right shoulder Primary osteoarthritis, right wrist TIA (transient ischemic attack) Weakness Social History Smoking Status: Never smoker Hx Alcohol Use: No Hx Substance Use: No Preferred Language: Uzbek Communication Ability: Effective [employer] Converter Blower Required: No Beliefs That Will Affect Care: None Current Living Situation: Family Current Living Situation Comment: lives with son kimo Other Information That Helps Us Care for You: No Feels Safe at Home: Yes Safety Concerns: Feels Safe At This Time Assistive Devices: Cane Review of Systems Review of Systems: Negative x12 point review except as per HPI Physical Exam Constitutional: Elderly, frail. No acute distress Eyes: Extraocular muscles intact. Sclera are anicteric. ENMT: Oral mucosa is pink moist and intact. Neck: No JVD Respiratory: Clear to auscultation bilaterally. No wheezing, rhonchi, or rales. Cardiovascular: Irregular rhythm. Normal rate. Sinus rhythm with frequent PACs on the monitor. Grade 3 out of 6 harsh systolic murmur which is crescendo decrescendo. Pulses are 1+ and symmetric. Gastrointestinal (Abdomen): Normal active bowel sounds. Nontender. Neurologic: Cognition is intact. Speech is improved but not at baseline. Psychiatric: A+Ox3, euthymic affect Results & Data ([facility]) Vital Signs (Past 12 Hours) Vital Signs Temp Pulse Pulse Resp BP Pulse Ox O2 Del Method 09/13/22 16:00 36.8 C 64 18 126/66 97 Room Air 09/13/22 11:30 36.8 C 52 L 18 133/74 97 Room Air 09/13/22 08:16 36.5 C 59 L 18 132/73 96 Room Air 09/13/22 07:13 Room Air 09/13/22 07:13 56 L PG Care Time/CCT Total # of Minutes Spent Total Time Spent with Patient: Total time spent is greater than 50% in coordination of care (as documented) at patient's floor/unit and/or counseling patient: [place] [address] Initial Inpt Care Lvl 3 Patient Type New Diagnoses Acute CVA (cerebrovascular accident) I63.9 Aortic stenosis I35.0 Benign essential hypertension I10 Atherogenic dyslipidemia E78.5
--- NOTE | 2022-09-13 22:32 | Hospitalist Progress Note ---
Date of Service September 13, 2022 Assessment & Plan (1) DKA (diabetic ketoacidosis): Plan: -Admit to the PCU -Patient is currently afebrile, hemodynamically stable, and stable on RA -BSG noted to be 532 in the ED, AG of 12 with bicarb of 12, while she was not acidotic on her VBG it looks as though she was entering into an acidosis -Unclear of the exact etiology of her DKA at this time, suspect infection at this time with multiple possible etiologies including possible UTI, septic arthritis of the right wrist S/P steroid injection, or occult abdominal infection -Having nursing staff place gray and obtain UA, ordering xray of the right wrist to monitor for signs of infection, will get stool studies including C. diff to rule out gastrointestinal infection -Was given NSS and a dose of ceftriaxone in the ED, had the ED start DKA protocol prior to admission -Continue with DKA protocol, initial potassium was noted to be 3.5, ordered 10 meq IV KCL to be given now, will continue with IV hydration with LR at 100 mL/hr x 2 bags, will continue with IV fluid hydration if she still cannot take po intake later tonight -For now will switch patient to zosyn and unasyn for broad coverage until her infectious workup is resulted -Monitor BMP, mag, and phos q4h while on insulin drip -Will order A1c for the am for better monitoring of her blood glucose control On 09/12 patients A!C was above the upper limit >16 This likely provoked her altered mental status. She will need to be on insulin. will monitor her blood sugars. while also treating for possible cystitis. ON 09/13 Her diabetes appears bettet controlled. Patient will need to be discharged on insulin. will continue IVF as patient has Acute kidney failure. Improving with IVF. (2) AMS (altered mental status): Plan: Metabolic encephalopathy -Patient noted to have significant change in mental status over the past 48-72 hours, also noted to be slurring words and ambulatory dysfunction -Concern for possible stroke earlier in the week, CT head in the ED was negative for acute findings, will obtain MRI of the brain and TTE with bubble study for further evaluation -There is liekly also a metabolic/infectious component to her AMS at this time as well, continue to monitor mental status with treatment of her DKA and possible infection Appears to have resolved on 09/12 no longer slurring words. likely a combination of her DKA (3) High anion gap metabolic acidosis: Plan: -Likely from her DKA, lactate was WNL in the ED -Continue to treat DKA and possible infections and monitor for improvement on q4h DKA labs -If her acidosis and renal function would continue to decline would consider the addition of Sodium bicarb (4) SHRUTHI (acute kidney injury): Plan: -Cr noted to be 2.7 today, cr was 1.40 as of 08/10/21 -Unclear of patient's baseline since last year, also unsure if her baseline changed after her recent episode of rhabdo prior to moving to [employer]. Patient was also consistently taking Naproxen and Ibuprofen daily for OA pain, this could be contributing to her poor renal function -DKA has resolved. SHRUTHI is improving, creat is near 1.4 (5) Hyponatremia: Plan: -Noted to be 130 today after correcting for her glucose of 532 -Likely from poor oral intake, dehydration, and possible ATN -Monitor sodium on q4h BMP, if significant change on repeat would touch base with Nephrology resolved on 09/13 (6) Aortic stenosis: Plan: -Known to have severe -Follows with Dr. Oquendo -FU with TTE tomorrow -Monitor for volume overload while on IV fluids (7) Benign essential hypertension: Plan: -Currently hemodynamically stable -Hold lisinopril and lasix for Shruthi and electrolyte abnormalities -Will continue metoprolol for now Admission and Anticipated Discharge Date Admission Date: September 11, 2022 Subjective Patient reports no new symptoms. Review of Systems Review of Systems: All systems reviewed & are unremarkable except as noted in HPI & below Physical Exam Physical Exam: General:In no acute distress, stated age,malnourished, chronically ill-appearing HEENT:Normocephalic, atraumatic, no scleral icterus, pupils around round, symmetrical, and reactive to light,drymucus membranes, trachea midline, no thyromegaly Chest/Pulm:No respiratory distress, symmetrical chest expansion, clear breath sounds throughout Cardiac:RRR, 5/6 systolic murmur heard best in the aortic area with radiation to the carotids Abdomen:Negative for ascites and bruising, normoactive bowel sounds, soft, non-tender to palpation throughout Musculoskeletal:Patient with intak ROM of the BL upper and lower extremities, right wrist is currently wrapped due to attempts to place IV, no significant swelling, erythema, or pain upon movement or palpation of the wrist. Patient with small, non-infected skin tear on the second left toe, no other acute trauma noted. Able to flex head and turn her head to the left/right without stiffness or pain Extremities:Radial, dorsalis pedis, and posterior tibial pulses are intact and symmetrical, no edema noted in the BL LE's Skin:Patient with pressure ulcer and minor skin breakdown on the sacrum, no current drainage at this time Neuro:Alert and oriented to person and month only, place,CN II-XII tested and intact,, no tremors noted Psych:No acute distress, calm and cooperative during the exam Results & Data Results & Data ([facility]) Vital Signs (Past 12 Hours) Vital Signs Temp Pulse Pulse Resp BP Pulse Ox O2 Del Method 09/13/22 20:00 Room Air 09/13/22 20:31 36.7 C 62 20 155/64 H 100 Room Air 09/13/22 16:00 53 L 09/13/22 16:00 36.8 C 64 18 126/66 97 Room Air 09/13/22 11:30 36.8 C 52 L 18 133/74 97 Room Air PG Care Time/CCT Total # of Minutes Spent Total Time Spent with Patient: Total time spent is greater than 50% in coordination of care (as documented) at patient's floor/unit and/or counseling patient: Coding Level of Care Code 42995 Subseq Hosp Care Lvl 3 Diagnoses DKA (diabetic ketoacidosis) E11.10 AMS (altered mental status) R41.82 Altered mental status type: unspecified High anion gap metabolic acidosis E87.29 SHRUTHI (acute kidney injury) N17.9 Hyponatremia E87.1 Aortic stenosis I35.0 Benign essential hypertension I10 Time Spent (min) 35 (1) AMS (altered mental status) Altered mental status type: unspecified Qualified Code(s): R41.82 - Altered mental status, unspecified
[2022-09-14 06:30] LABS: Hemoglobin 9.8 g/dl (12.0-16.0); Mean Corpuscular Hemoglobin 28.3 pg (25.0-34.0); Mean Corpuscular Hgb Conc 32.7 g/dL (32.0-36.0); Mean Corpuscular Volume 86.7 fL (80.0-100.0); Mean Platelet Volume 11.5 fL (9.4-12.3); Platelet Count 291 K/uL (130-400); RDW Coefficient of Variation 13.5 % (11.5-14.5); RDW Standard Deviation 42.2 fL (36.4-46.3); Red Blood Count 3.46 M/uL (3.93-5.22); White Blood Count 8.85 K/ul (4.8-10.8)
[2022-09-14 06:45] LABS: Calcium 7.4 mg/dl (8.5-10.1); Creatinine Clr Calc Pharmacy 23.5 ml/min; Est GFR (African American) 40.2 ml/min; Est GFR (Non-African American) 34.7 ml/min; Potassium 3.7 mmol/L (3.5-5.1)
[2022-09-14] MEDS: POTASSIUM CHLORIDE CRTAB 20 MEQ TABCR PO SCH ×3 (08:07→21:17)
[2022-09-14] MEDS: PANTOprazole 40 MG in SYRINGE 0 ML IV SCH ×2 (08:07→21:16)
[2022-09-14] MEDS: ATORVASTATIN 40 MG TAB PO SCH (08:07)
[2022-09-14] MEDS: LANTUS PER UNIT CHARGE SQ SCH ×2 (08:10→21:16)
[2022-09-14] MEDS: INSULIN ASPART PER UNIT SC SCH ×4 (08:11→21:15)
--- NOTE | 2022-09-14 11:35 | Neurology Consultation ---
Date of Consultation September 14, 2022 Assessment & Plan (1) DKA (diabetic ketoacidosis): Plan Neurology Consultation Assessment: pt with ongoing issue with DKA and episodic confusion in setting of UTI. mri brain finding is likely artifact in nature and if any, perhaps changes due to hyperglycemia. the lesion does not explain or correlate with her condition. it also is not causing any physical deficits to call it clinically relevant lesion. Recommendations: -continue tx for DKA and UTI -no need for stroke work up at this point as mri brain finding is not very concern for true ischemic lesion. -tx UTI and focus on nutritional care and supportive care. not much to add, please call again if new question. maci olivares MD [facility] neurology HPI: pt this morning sitting in chair and talking well. wanting to go home. able to carry out conversation well. no weakness. chart reviewed. mri brain reviewed. Admission/prior HPI note: Piper is an 86 year old female with a PMH significant for DM (not recently on insulin), right wrist OA, previous CVA, multiple recent falls, HTN, hyperlipidemia, Aortic stenosis, In the ED the patient was found to be afebrile, hemodynamically stable, stable on RA, and bradycardic in the 50's. Labs were remarkable for leukocytosis of 13.06 with left shift of 10.03, stable hgb of 11.4, VBG showing a pH of 7.39, pCO2 of 36, and pO2 of 100, glucose of 532, Cr of 2.7 (was noted to be 1.4 as of 08/10/21), corrected sodium of 130, chloride of 91, AG of 12 with bicarb of 20, corrected calcium of 8.4, stable liver function, CRP of 1.01, with initial high sensitivity troponin of 27.2, Chest xray was negative for acute findings. CT of the head was negative for acute findings but showed an Old left basal ganglia infarct. CT of the abdomen/pelvis WO IV contrast shows "1. Question mild wall thickening of the duodenum with faint surrounding infiltration. Correlate clinically for evidence of duodenitis or possibly ulcer disease. This could be further assessed with endoscopy if clinically warranted. 2. [id number] colonic fecal retention. 3. Gas within the bladder lumen is nonspecific and may be related to instrumentation. Correlate with clinical findings and urinalysis. 4. Additional findings as above.". Prior to admission the patient was given 1L NSS bolus, one dose of ceftriaxone, and was started on DKA protocol at the request of the admitting team. At the time of the exam the patient was resting comfortably in bed in no acute distress with her Son and his sitting bedside; the majority of the history was obtained from the patient's family due to her currently mental status. They state that she is originally from [place] and was just moved up her to live with her son and [facility]. Initially, the patient was doing well, they turned their dinning room into her bedroom. However, over the past 1-2 weeks she has had a steep decline in health and function. They state that she had a fall approximately two weeks ago but did not sustain any serious injuries. Approximately 3 days ago she started slurring her words and having worsening ambulatory dysfunction. The patient has had loose stool over the past week but only one bowel movement daily, they think that her stool looked dark but has not seen blood in her stool. They note that she had a steroid injection in her left wrist for arthritis with orthopedics approximately 1-2 weeks ago. She has not been eating well over the past week and takes Ibuprofen and Naproxen multiple times daily for her arthritis. They state that she had been managing her blood glucose with diet and exercise and does not use insulin. Yesterday they found her blood glucose to be in the 500's, they called 911 but the patient had decision making capacity at that time and refused to be transported to the hospital. Her family is concerned that she may have a UTI as she had been complaining of dysuria and urinary frequency over the past few days. When asked about any wounds they noted that she has a sacral wound on her buttocks that they have been cleaning and adding barrier cream multiple times a day. The patient was recently seen by Dr. Quijano who also known the patient and her family well due to being a family friend. He was very concerned at their visit due to a significant decline in overall function and health since he last saw her. He was helping the family establish her care in the [facility] system with Dr. Villatoro as they known him as well. Dr. Truong's note explains that the patient was hospitalized for Rhabdomyolysis due to a fall and being on the ground for 2 days prior to being moved up to [email or web address]. I spoke to the family regarding code status, they are currently in the process of getting a living will and POA for the patient. We discussed code status, the patient's family states that she has stated clearly to them in the past that she wishes to be a DNR/DNI. ROS: per HPI Med list: see chart PMHx/SHx: see chart Neuro Exam: Mental: Alert, aware august, not sure of year but think 2021, aware she is hospital, follows command very well, Fluent speech, normal comprehension, no apraxia, no neglect. CN: PERRL, Full EOM, symmetric face, tongue midline. SCM/Traps 5/5 Motor: 5-/5 t/o symmetric bilaterally. Normal tone and bulk. No abnormal movements. Sens: intact to touch b/l Coord: intact DTR: toes down b/l Total time spent: min. This includes time spent educating patient about medical condition and coordination of care (also including time spent on chart reviewing and documentation). History of Present Illness Attending Physician: Luan Day Allergies Allergy/AdvReac Type Severity Reaction Status Date / Time No Known Allergies Allergy Verified 09/11/22 17:02 Home Medications Medication Instructions Recorded Confirmed Type furosemide 40 mg tablet 40 mg PO DAILY 09/02/22 09/11/22 History ibuprofen 600 mg tablet 600 mg PO Q8H PRN Pain 09/02/22 09/11/22 History lisinopril 10 mg tablet 10 mg PO BID 09/02/22 09/11/22 History naproxen sodium 220 mg tablet 440 mg PO DAILY 09/02/22 09/11/22 History atorvastatin 40 mg tablet 40 mg PO DAILY 09/11/22 09/11/22 History metoprolol tartrate 25 mg tablet 25 mg PO BID 09/11/22 09/11/22 History Patient History Medical History Ambulatory dysfunction Aortic stenosis Atherogenic dyslipidemia Benign essential hypertension Diabetes Extensor tenosynovitis of right wrist Impingement of right shoulder Primary osteoarthritis, right wrist TIA (transient ischemic attack) Weakness Social History Smoking Status: Never smoker Hx Alcohol Use: No Hx Substance Use: No Preferred Language: Danish Communication Ability: Effective Senior Water Resources Engineer Required: No Beliefs That Will Affect Care: None Current Living Situation: Family Current Living Situation Comment: lives with son kimo Other Information That Helps Us Care for You: No Feels Safe at Home: Yes Safety Concerns: Feels Safe At This Time Assistive Devices: Cane Results & Data ([facility]) Vital Signs (Past 12 Hours) Vital Signs Temp Pulse Pulse Resp BP Pulse Ox O2 Del Method 09/14/22 08:24 36.9 C 60 17 161/59 H 98 Room Air 09/14/22 07:00 Room Air 09/14/22 06:53 51 L 09/14/22 03:15 36.7 C 54 L 18 142/62 H 98 Room Air
[2022-09-14] MEDS: SODIUM CHLORIDE 0.9% 1000ML 1,000 ML IV SCH ×2 (12:08→23:24)
[2022-09-14] MEDS: cefTRIAXone SODIUM 1,000 MG Advantage IV SCH (12:17)
--- NOTE | 2022-09-14 14:26 | Pharmacy Report ---
Pharmacy Glycemic Short Note 2 - Date of Service September 14, 2022 - Glycemic Short BSG Results (Last 24 hours): 09/13/22 09/13/22 09/14/22 16:22 20:47 05:31 Glucose 135 H POC Glucose 201 H 155 H 09/14/22 09/14/22 07:33 11:10 Glucose POC Glucose 135 H 227 H OUTPATIENT ANTIDIABETIC REGIMEN: * None * HbA1c: > 16.9% (09/12/22) ASSESSMENT: 09/14: * Patient received total of 12 units yesterday, of which 5 units were basal insulin * Fasting BSG 135 mg/dL - continue with basal of 5 units this AM, will have scale for basal this evening as now patient on diet and anticipate needs to increase 09/13: * A1c demonstrates very poor outpatient control of diabetes. Patient received ~40 units of insulin yesterday, 15 units basal + 2 units bolus + ~23 units from the insulin drip prior to it shutting off. * Fasting BSG this AM was 87 mg/dL. Will reduce basal scale today. Patient does remain NPO. * Lunchtime BSG was 90 mg/dL. Will loosen carb ratio. 09/12: * 86 yo F w hx diabetes noted but not on any outpatient diabetes medications admitted with AMS and possible DKA due to slight elevation in anion gap and slightly low CO2 in the context of severe hyperglycemia > 500 mg/dL * Insulin drip initiated - rates and BSG's trended down overnight with no Lantus administered. Currently running at 2 units/hr with BSG of 144 mg/dL this AM * Anion gap closed, CO2 wnl * Discussed w Dr. Shay MARTELL to transition off insulin drip. Fluids were switched from [id number] IVF to NS this AM * Patient remains NPO for now. Diet may or may not be ordered later today * Will give a very low dose of Lantus to transition due to NPO status, stopping D5W fluids, plus low rates of insulin drip * Will start weight-based moderate stress Novolog * OK to stop drip 2-6 hours after Lantus administration PLAN FOR INPATIENT GLYCEMIC CONTROL: * Basal insulin * Lantus 0-5 units SC BID based on BSG * Bolus insulin * NovoLog per scale ACHS or Q6hrs while NPO * Goal Range: Low 110 mg/dL - High 140 mg/dL * Correction Factor: 45 mg/dL/unit * Nutritional / Prandial insulin per carb ratio of 1 unit per 15 grams CHO consumed
--- NOTE | 2022-09-14 22:08 | Hospitalist Progress Note ---
Date of Service September 14, 2022 Assessment & Plan (1) DKA (diabetic ketoacidosis): Plan: -Admit to the PCU -Patient is currently afebrile, hemodynamically stable, and stable on RA -BSG noted to be 532 in the ED, AG of 12 with bicarb of 12, while she was not acidotic on her VBG it looks as though she was entering into an acidosis -Unclear of the exact etiology of her DKA at this time, suspect infection at this time with multiple possible etiologies including possible UTI, septic arthritis of the right wrist S/P steroid injection, or occult abdominal infection -Having nursing staff place gray and obtain UA, ordering xray of the right wrist to monitor for signs of infection, will get stool studies including C. diff to rule out gastrointestinal infection -Was given NSS and a dose of ceftriaxone in the ED, had the ED start DKA protocol prior to admission -Continue with DKA protocol, initial potassium was noted to be 3.5, ordered 10 meq IV KCL to be given now, will continue with IV hydration with LR at 100 mL/hr x 2 bags, will continue with IV fluid hydration if she still cannot take po intake later tonight -For now will switch patient to zosyn and unasyn for broad coverage until her infectious workup is resulted -Monitor BMP, mag, and phos q4h while on insulin drip -Will order A1c for the am for better monitoring of her blood glucose control On 09/12 patients A!C was above the upper limit >16 This likely provoked her altered mental status. She will need to be on insulin. will monitor her blood sugars. while also treating for possible cystitis. ON 09/13 Her diabetes appears better controlled. Patient will need to be discharged on insulin. will continue IVF as patient has Acute kidney failure. Improving with IVF. On 09/14 Resolved. continue IVF, ESTHER also appears to have resolved. Awaiting placement. (2) AMS (altered mental status): Plan: Metabolic encephalopathy -Patient noted to have significant change in mental status over the past 48-72 hours, also noted to be slurring words and ambulatory dysfunction -Concern for possible stroke earlier in the week, CT head in the ED was negative for acute findings, will obtain MRI of the brain and TTE with bubble study for further evaluation -There is liekly also a metabolic/infectious component to her AMS at this time as well, continue to monitor mental status with treatment of her DKA and possible infection Appears to have resolved on 09/12 no longer slurring words. likely a combination of her DKA (3) High anion gap metabolic acidosis: Plan: Resolved: plan as below -Likely from her DKA, lactate was WNL in the ED -Continue to treat DKA and possible infections and monitor for improvement on q4 h DKA labs -If her acidosis and renal function would continue to decline would consider the addition of Sodium bicarb (4) ESTHER (acute kidney injury): Plan: -Cr noted to be 2.7 today, cr was 1.40 as of 08/10/21 -Unclear of patient's baseline since last year, also unsure if her baseline changed after her recent episode of rhabdo prior to moving to [place]. Patient was also consistently taking Naproxen and Ibuprofen daily for OA pain, this could be contributing to her poor renal function -DKA has resolved. ESTHER is improving, creat is 1.39 (5) Hyponatremia: Plan: -Noted to be 130 today after correcting for her glucose of 532 -Likely from poor oral intake, dehydration, and possible ATN -Monitor sodium on q4h BMP, if significant change on repeat would touch base with Nephrology resolved on 09/13 (6) Aortic stenosis: Plan: -Known to have severe -Follows with Dr. Oquendo -GURPREET with TTE tomorrow -Monitor for volume overload while on IV fluids (7) Benign essential hypertension: Plan: -Currently hemodynamically stable -Hold lisinopril and lasix for Esther and electrolyte abnormalities -Will continue metoprolol for now Admission and Anticipated Discharge Date Admission Date: September 11, 2022 Subjective Patient reports feeling well. Has no new complaints. Review of Systems Review of Systems: All systems reviewed & are unremarkable except as noted in HPI & below Physical Exam Physical Exam: General:In no acute distress, stated age,malnourished, chronically ill-appearing HEENT:Normocephalic, atraumatic, no scleral icterus, pupils around round, symmetrical, and reactive to light, trachea midline, no thyromegaly Chest/Pulm:No respiratory distress, symmetrical chest expansion, clear breath sounds throughout Cardiac:RRR, 5/6 systolic murmur heard best in the aortic area with radiation to the carotids Abdomen:Negative for ascites and bruising, normoactive bowel sounds, soft, non-tender to palpation throughout Musculoskeletal:able to move all her extremities. Extremities:Radial, dorsalis pedis, and posterior tibial pulses are intact and symmetrical, no edema noted in the BL LE's Skin:Patient with pressure ulcer and minor skin breakdown on the sacrum, no current drainage at this time Neuro:Alert and oriented to person and month only, place,CN II-XII tested and intact,, no tremors noted Psych:No acute distress, calm and cooperative during the exam Results & Data Results & [facility] ([facility]) Vital Signs (Past 12 Hours) Vital Signs Temp Pulse Pulse Resp BP Pulse Ox O2 Del Method 09/14/22 19:40 36.9 C 81 18 156/91 H 97 Room Air 09/14/22 16:36 37.1 C 66 17 131/55 L 99 Room Air 09/14/22 15:26 62 09/14/22 12:12 36.9 C 61 18 142/56 H 99 Room Air PG Care Time/CCT Total # of Minutes Spent Total Time Spent with Patient: Total time spent is greater than 50% in coordination of care (as documented) at patient's floor/unit and/or counseling patient: Coding Level of Care Code 95641 Subseq Hosp Care Lvl 3 Diagnoses DKA (diabetic ketoacidosis) E11.10 AMS (altered mental status) R41.82 Altered mental status type: unspecified High anion gap metabolic acidosis E87.29 ESTHER (acute kidney injury) N17.9 Hyponatremia E87.1 Aortic stenosis I35.0 Benign essential hypertension I10 (1) AMS (altered mental status) Altered mental status type: unspecified Qualified Code(s): R41.82 - Altered mental status, unspecified
[2022-09-15] MEDS: ATORVASTATIN 40 MG TAB PO SCH (08:15)
[2022-09-15] MEDS: PANTOprazole 40 MG in SYRINGE 0 ML IV SCH (08:15)
[2022-09-15] MEDS: POTASSIUM CHLORIDE CRTAB 20 MEQ TABCR PO SCH (08:16)
[2022-09-15] MEDS: INSULIN ASPART PER UNIT SC SCH ×4 (08:22→20:36)
[2022-09-15] MEDS: LANTUS PER UNIT CHARGE SQ SCH (08:22)
[2022-09-15 09:15] LABS: Basophils # (auto) 0.07 K/uL (0-0.2); Basophils % (auto) 0.6 %; Eosinophils % (auto) 0.8 %; Hematocrit (blood only) 33.4 % (34.1-44.9); Hemoglobin 10.9 g/dl (12.0-16.0); Immature Granulocytes # (auto) 0.07 K/uL (0.00-0.02); Immature Granulocytes % (auto) 0.6 %; Lymphocytes # (auto) 1.82 K/uL (1.2-3.4); Lymphocytes % (auto) 14.7 %; Mean Corpuscular Hemoglobin 28.2 pg (25.0-34.0); Mean Corpuscular Hgb Conc 32.6 g/dL (32.0-36.0); Mean Corpuscular Volume 86.3 fL (80.0-100.0); Mean Platelet Volume 10.9 fL (9.4-12.3); Monocytes # (auto) 0.57 K/uL (0.24-0.82); Monocytes % (auto) 4.6 %; Neutrophils # (auto) 9.72 K/uL (1.4-6.5); Neutrophils % (auto) 78.7 %; Platelet Count 312 K/uL (130-400); RDW Coefficient of Variation 14.3 % (11.5-14.5); RDW Standard Deviation 45.2 fL (36.4-46.3); Red Blood Count 3.87 M/uL (3.93-5.22); White Blood Count 12.35 K/ul (4.8-10.8)
[2022-09-15] MEDS: METOPROLOL TARTRATE 25 MG TAB PO SCH ×2 (11:06→21:37)
--- NOTE | 2022-09-15 11:33 | Hospitalist Progress Note ---
Date of Service September 15, 2022 Assessment & Plan (1) DKA (diabetic ketoacidosis): Plan: DKA now resolved. Anion gap closed. Current mildly low bicarb likely due to hyperchloremia due to previous normal saline. No known diabetes diagnosis prior to this admission HbA1C > 16.9 Suspect this was the main cause of her altered mental state as below. Appreciate pharmacy insulin management with basal bolus insulin while in hospital. Medically stable for discharge. Awaiting placement. Recommend she is seen by diabetes educator prior to discharge. Will monitor increasingly leukocytosis while here. (2) AMS (altered mental status): Plan: Metabolic encephalopathy - secondary to DKA as above +/- UTI (3) UTI (urinary tract infection): Plan: Urine culture with mixed tyrone Ceftriaxone initially ordered for uncomplicated UTI (dysuria mentioned in H&P) although patient denies this today. Regardless three days of ceftriaxone for uncomplicated UTI should be adequate and will d/c further antibiotics at this time. No CVA tenderness on exam (4) High anion gap metabolic acidosis: Plan: Now resolved. Secondary to ketosis as above. (5) ESTHER (acute kidney injury): Plan: Now resolved. Secondary to DKA and NSAID use. Ok to restart lisinopril as below. Continue to avoid NSAIDs. (6) Hyponatremia: Plan: Resolved (7) Aortic stenosis: Plan: Appreciate cardiology consult while here. Repeat TTE with mod/severe . (8) Benign essential hypertension: Plan: Unclear reason metoprolol on hold yesterday. Will restart today with reduced hold parameters. Restart lisinopril at her usual dose of 10mg PO BID and monitor for hypotension Will hold off on restarting Lasix at this time but may need to be restarted prior to discharge. (9) Normocytic anemia: Plan: Concern for UGI bleed with CT findings of duodenitis Seen by GI on 09/13 and endoscopic workup deferred unless overt GI bleeding or significant drop in H&H Switch pantoprazole 40mg IV BID to PO daily perhaps for 1 month with outpatient GI follow up FOB ordered No gluten sensitivity or GERD per history. Duodenitis likely on basis of NSAID use which we are discontinuing irregardless. (10) Acute CVA (cerebrovascular accident): Plan: MRI findings concerning for subacute lacunar infarct - neurology consulted and suspected to be articatual at this time. No further workup required and antiplatelets deferred Plan VTE Prophylaxis - start Lovenox 40mg SQ daily Diet - T2DM Disposition - stable for downgrade to med/surg, PT/OT Admission and Anticipated Discharge Date Admission Date: September 11, 2022 Subjective Discussed care with patient and son at bedside. She reports no chest pain, shortness of breath or dizziness however leg swelling is worse than it normally is. She is most closer to her baseline mentation today. No current urinary symptoms and she reports no prior dysuria. Review of Systems Review of Systems: All systems reviewed & are unremarkable except as noted in Subjective Physical Exam Constitutional: WD/WN, vitals as above Respiratory: normal respiratory effort, lungs clear to auscultation Cardiovascular: Rate/Rhythm: regular rate and regular rhythm Heart Sounds: + murmur (late opening LUSB systolic ejection 5/6) Extremities: normal capillary refill and + pedal edema (1+ b/l pre tibial); no calf tenderness Gastrointestinal (Abdomen): normal bowel sounds, soft, nontender, no hepatosplenomegaly Skin: no rashes, warm and dry Neurologic: moves all extremities and awake; no focal motor deficits and not confused Psychiatric: Orientation: alert, oriented to person, oriented to place and oriented to time (year) Genitourinary: no CVA tenderness Results & Data Results & Data ([facility]) Vital Signs (Past 12 Hours) Vital Signs Temp Pulse Pulse Resp BP Pulse Ox O2 Del Method 09/15/22 11:10 36.7 C 71 18 131/63 98 Room Air 09/15/22 08:30 36.7 C 102 H 18 173/96 H 94 Room Air 09/15/22 06:55 80 09/15/22 03:15 36.9 C 88 21 146/68 H 97 Room Air 09/15/22 00:48 68 PG Care Time/CCT Total # of Minutes Spent Total Time Spent with Patient: Total time spent is greater than 50% in coordination of care (as documented) at patient's floor/unit and/or counseling patient: Coding Level of Care Code 28292 Subseq Hosp Care Lvl 3 Diagnoses DKA (diabetic ketoacidosis) E11.10 AMS (altered mental status) R41.82 Altered mental status type: unspecified UTI (urinary tract infection) N39.0 High anion gap metabolic acidosis E87.29 ESTHER (acute kidney injury) N17.9 Hyponatremia E87.1 Aortic stenosis I35.0 Benign essential hypertension I10 Normocytic anemia D64.9 Acute CVA (cerebrovascular accident) I63.9 (1) AMS (altered mental status) Altered mental status type: unspecified Qualified Code(s): R41.82 - Altered mental status, unspecified
[2022-09-15] MEDS: cefTRIAXone SODIUM 1,000 MG Advantage IV SCH (12:49)
[2022-09-15 13:54] LABS: Albumin Globulin Ratio 1.1 (0.9-2); Albumin Level 3.1 gm/dl (3.4-5.0); BUN Creatinine Ratio 19.6 (10-20); Bilirubin,Total 0.4 mg/dl (0.2-1.0); Calcium 8.7 mg/dl (8.5-10.1); Creatinine Clr Calc Pharmacy 33.3 ml/min; Est GFR (African American) 58.5 ml/min; Est GFR (Non-African American) 50.5 ml/min; Globulin 2.8 gm/dl (2.5-4.0); Magnesium 1.2 mg/dl (1.7-2.4); Phosphorus 1.7 mg/dl (2.5-4.9); Potassium 4.6 mmol/L (3.5-5.1); Total Protein 5.9 gm/dl (6.0-8.3)
--- NOTE | 2022-09-15 14:35 | Pharmacy Report ---
Pharmacy Glycemic Short Note 2 - Date of Service September 15, 2022 - Glycemic Short BSG Results (Last 24 hours): 09/14/22 09/14/22 09/15/22 16:29 21:08 07:09 Glucose POC Glucose 283 H 244 H 121 H 09/15/22 09/15/22 08:58 11:06 Glucose 194 H POC Glucose 182 H OUTPATIENT ANTIDIABETIC REGIMEN: * None * HbA1c: > 16.9% (09/12/22) ASSESSMENT: 09/15: * Patient received total fo 25 units of insulin yesterday, of which 10 units were basal insulin * Fasting BSG 121 mg/dL - PO intake increasing more. Estimate patient likely requiring closer to ~15 units fo basal insulin. Will titrate more today * Tighten CF/Cr as BSGs elevated yesterday throughout the day 09/14: * Patient received total of 12 units yesterday, of which 5 units were basal insulin * Fasting BSG 135 mg/dL - continue with basal of 5 units this AM, will have scale for basal this evening as now patient on diet and anticipate needs to increase 09/13: * A1c demonstrates very poor outpatient control of diabetes. Patient received ~40 units of insulin yesterday, 15 units basal + 2 units bolus + ~23 units from the insulin drip prior to it shutting off. * Fasting BSG this AM was 87 mg/dL. Will reduce basal scale today. Patient does remain NPO. * Lunchtime BSG was 90 mg/dL. Will loosen carb ratio. 09/12: * 86 yo F w hx diabetes noted but not on any outpatient diabetes medications admitted with AMS and possible DKA due to slight elevation in anion gap and slightly low CO2 in the context of severe hyperglycemia > 500 mg/dL * Insulin drip initiated - rates and BSG's trended down overnight with no Lantus administered. Currently running at 2 units/hr with BSG of 144 mg/dL this AM * Anion gap closed, CO2 wnl * Discussed w Dr. Shay MARTELL to transition off insulin drip. Fluids were switched from [id number] IVF to NS this AM * Patient remains NPO for now. Diet may or may not be ordered later today * Will give a very low dose of Lantus to transition due to NPO status, stopping D5W fluids, plus low rates of insulin drip * Will start weight-based moderate stress Novolog * OK to stop drip 2-6 hours after Lantus administration PLAN FOR INPATIENT GLYCEMIC CONTROL: * Basal insulin * Lantus 8 units Qam, 5 units Qpm * Bolus insulin * NovoLog per scale ACHS or Q6hrs while NPO * Goal Range: Low 110 mg/dL - High 140 mg/dL * Correction Factor: 30 mg/dL/unit * Nutritional / Prandial insulin per carb ratio of 1 unit per 10 grams CHO consumed
[2022-09-15] MEDS: lisinopril 10 MG TAB PO SCH (20:41)
[2022-09-15] MEDS ORDERED: LANTUS PER UNIT CHARGE SQ SCH (21:00)
[2022-09-15] MEDS ORDERED: POTASSIUM PHOS 3 MMOL/1 ML INFUSION IV STA (22:53)
[2022-09-15] MEDS ORDERED: ENOXAPARIN INJ 40 MG/0.4 ML SYR SQ SCH (23:05)
[2022-09-15] MEDS ORDERED: POTASSIUM PHOSPHATE 9 MMOL in SODIUM CHLORIDE 0.9% 250 ML IV ONE (23:30)
[2022-09-15] MEDS: MAGNESIUM SULFATE / D5W 1 GM/100 ML BAG IV SCH (23:34)
[2022-09-16] MEDS: MAGNESIUM SULFATE / D5W 1 GM/100 ML BAG IV SCH ×2 (01:57→04:03)
[2022-09-16] MEDS ORDERED: PANTOprazole 40 MG TAB PO SCH (09:00)
--- NOTE | 2022-09-16 09:17 | Hospitalist Progress Note ---
Date of Service September 16, 2022 Assessment & Plan (1) DKA (diabetic ketoacidosis): Plan: DKA now resolved. Anion gap closed. Current mildly low bicarb likely due to hyperchloremia due to previous normal saline. No known diabetes diagnosis prior to this admission HbA1C > 16.9 Suspect this was the main cause of her altered mental state as below. Appreciate pharmacy insulin management with basal bolus insulin while in hospital. Medically stable for discharge. Awaiting placement. Recommend she is seen by roller picker prior to discharge. Will monitor increasingly leukocytosis while here. (2) AMS (altered mental status): Plan: Metabolic encephalopathy - secondary to DKA as above +/- UTI (3) UTI (urinary tract infection): Plan: Urine culture with mixed tyrone Ceftriaxone initially ordered for uncomplicated UTI (dysuria mentioned in H&P) although patient denies this today. Regardless three days of ceftriaxone for uncomplicated UTI should be adequate and will d/c further antibiotics at this time. No CVA tenderness on exam (4) High anion gap metabolic acidosis: Plan: Now resolved. Secondary to ketosis as above. (5) ESTHER (acute kidney injury): Plan: Now resolved. Secondary to DKA and NSAID use. Ok to restart lisinopril as below. Continue to avoid NSAIDs. (6) Hyponatremia: Plan: Resolved (7) Aortic stenosis: Plan: Appreciate cardiology consult while here. Repeat TTE with mod/severe . (8) Benign essential hypertension: Plan: Unclear reason metoprolol on hold yesterday. Will restart today with reduced hold parameters. Restart lisinopril at her usual dose of 10mg PO BID and monitor for hypotension Will hold off on restarting Lasix at this time but may need to be restarted prior to discharge. (9) Normocytic anemia: Plan: Concern for UGI bleed with CT findings of duodenitis Seen by GI on 09/13 and endoscopic workup deferred unless overt GI bleeding or significant drop in H&H Switch pantoprazole 40mg IV BID to PO daily perhaps for 1 month with outpatient GI follow up FOB ordered No gluten sensitivity or GERD per history. Duodenitis likely on basis of NSAID use which we are discontinuing irregardless. (10) Acute CVA (cerebrovascular accident): Plan: MRI findings concerning for subacute lacunar infarct - neurology consulted and suspected to be articatual at this time. No further workup required and antiplatelets deferred Plan VTE Prophylaxis - start Lovenox 40mg SQ daily Diet - T2DM Disposition - stable for downgrade to med/surg, PT/OT Admission and Anticipated Discharge Date Admission Date: September 11, 2022 Results & Data Results & Data ([facility]) Vital Signs (Past 12 Hours) Vital Signs Temp Pulse Resp BP Pulse Ox O2 Del Method 09/16/22 07:28 98.1 F 66 17 166/58 H 99 Room Air PG Care Time/CCT Total # of Minutes Spent Total Time Spent with Patient: Total time spent is greater than 50% in coordination of care (as documented) at patient's floor/unit and/or counseling patient: Coding Diagnoses DKA (diabetic ketoacidosis) E11.10 AMS (altered mental status) R41.82 Altered mental status type: unspecified UTI (urinary tract infection) N39.0 High anion gap metabolic acidosis E87.29 ESTHER (acute kidney injury) N17.9 Hyponatremia E87.1 Aortic stenosis I35.0 Benign essential hypertension I10 Normocytic anemia D64.9 Acute CVA (cerebrovascular accident) I63.9 (1) AMS (altered mental status) Altered mental status type: unspecified Qualified Code(s): R41.82 - Altered mental status, unspecified
[2022-09-16] MEDS: INSULIN ASPART PER UNIT SC SCH ×2 (09:37→13:34)
[2022-09-16] MEDS: METOPROLOL TARTRATE 25 MG TAB PO SCH (09:38)
[2022-09-16] MEDS: lisinopril 10 MG TAB PO SCH (09:38)
[2022-09-16] MEDS: ATORVASTATIN 40 MG TAB PO SCH (09:38)
[2022-09-16 09:39] LABS: Basophils # (auto) 0.07 K/uL (0-0.2); Basophils % (auto) 0.7 %; Eosinophils # (auto) 0.36 K/uL (0-0.50); Eosinophils % (auto) 3.8 %; Hematocrit (blood only) 32.3 % (34.1-44.9); Hemoglobin 10.3 g/dl (12.0-16.0); Immature Granulocytes # (auto) 0.06 K/uL (0.00-0.02); Immature Granulocytes % (auto) 0.6 %; Lymphocytes # (auto) 2.51 K/uL (1.2-3.4); Lymphocytes % (auto) 26.2 %; Mean Corpuscular Hemoglobin 28.1 pg (25.0-34.0); Mean Corpuscular Hgb Conc 31.9 g/dL (32.0-36.0); Mean Corpuscular Volume 88.3 fL (80.0-100.0); Mean Platelet Volume 10.5 fL (9.4-12.3); Monocytes # (auto) 0.66 K/uL (0.24-0.82); Monocytes % (auto) 6.9 %; Neutrophils # (auto) 5.92 K/uL (1.4-6.5); Neutrophils % (auto) 61.8 %; Platelet Count 264 K/uL (130-400); RDW Coefficient of Variation 14.6 % (11.5-14.5); RDW Standard Deviation 46.8 fL (36.4-46.3); Red Blood Count 3.66 M/uL (3.93-5.22); White Blood Count 9.58 K/ul (4.8-10.8)
[2022-09-16] MEDS: LANTUS PER UNIT CHARGE SQ SCH (09:44)
[2022-09-16 10:20] LABS: Albumin Globulin Ratio 1.2 (0.9-2); BUN Creatinine Ratio 14.7 (10-20); Bilirubin,Total 0.4 mg/dl (0.2-1.0); Calcium 9.2 mg/dl (8.5-10.1); Creatinine Clr Calc Pharmacy 31.2 ml/min; Est GFR (Non-African American) 46.6 ml/min; Globulin 2.6 gm/dl (2.5-4.0); Magnesium 2.1 mg/dl (1.7-2.4); Phosphorus 2.4 mg/dl (2.5-4.9); Potassium 4.3 mmol/L (3.5-5.1); Total Protein 5.6 gm/dl (6.0-8.3)
--- NOTE | 2022-09-16 11:46 | Discharge Summary ---
Date of Service September 16, 2022 Admission HPI Per Admitting Provider Piper is an 86 year old female with a PMH significant for DM (not recently on insulin), right wrist OA, previous CVA, multiple recent falls, HTN, hyperlipidemia, Aortic stenosis, In the ED the patient was found to be afebrile, hemodynamically stable, stable on RA, and bradycardic in the 50's. Labs were remarkable for leukocytosis of 13.06 with left shift of 10.03, stable hgb of 11.4, VBG showing a pH of 7.39, pCO2 of 36, and pO2 of 100, glucose of 532, Cr of 2.7 (was noted to be 1.4 as of 08/10/21), corrected sodium of 130, chloride of 91, AG of 12 with bicarb of 20, corrected calcium of 8.4, stable liver function, CRP of 1.01, with initial high sensitivity troponin of 27.2, Chest xray was negative for acute findings. CT of the head was negative for acute findings but showed an Old left basal ganglia infarct. CT of the abdomen/pelvis WO IV contrast shows "1. Question mild wall thickening of the duodenum with faint surrounding infiltration. Correlate clinically for evidence of duodenitis or possibly ulcer disease. This could be further assessed with endoscopy if clinically warranted. 2. [id number]-jc-ykhbtgty colonic fecal retention. 3. Gas within the bladder lumen is nonspecific and may be related to instrumentation. Correlate with clinical findings and urinalysis. 4. Additional findings as above.". Prior to admission the patient was given 1L NSS bolus, one dose of ceftriaxone, and was started on DKA protocol at the request of the admitting team. At the time of the exam the patient was resting comfortably in bed in no acute distress with her Son and his sitting bedside; the majority of the history was obtained from the patient's family due to her currently mental status. They state that she is originally from [place] and was just moved up her to live with her son and his around [facility]. Initially, the patient was doing well, they turned their dinning room into her bedroom. However, over the past 1-2 weeks she has had a steep decline in health and function. They state that she had a fall approximately two weeks ago but did not sustain any serious injuries. Approximately 3 days ago she started slurring her words and having worsening ambulatory dysfunction. The patient has had loose stool over the past week but only one bowel movement daily, they think that her stool looked dark but has not seen blood in her stool. They note that she had a steroid injection in her left wrist for arthritis with orthopedics approximately 1-2 weeks ago. She has not been eating well over the past week and takes Ibuprofen and Naproxen multiple times daily for her arthritis. They state that she had been managing her blood glucose with diet and exercise and does not use insulin. Yesterday they found her blood glucose to be in the 500's, they called 911 but the patient had decision making capacity at that time and refused to be transported to the hospital. Her family is concerned that she may have a UTI as she had been complaining of dysuria and urinary frequency over the past few days. When asked about any wounds they noted that she has a sacral wound on her buttocks that they have been cleaning and adding barrier cream multiple times a day. The patient was recently seen by Dr. Quijano who also known the patient and her family well due to being a family friend. He was very concerned at their visit due to a significant decline in overall function and health since he last saw her. He was helping the family establish her care in the [facility] system with Dr. Villatoro as they known him as well. Dr. Truong's note explains that the patient was hospitalized for Rhabdomyolysis due to a fall and being on the ground for 2 days prior to being [facility] [employer]. I spoke to the family regarding code status, they are currently in the process of getting a living will and POA for the patient. We discussed code status, the patient's family states that she has stated clearly to them in the past that she wishes to be a DNR/DNI. When asked, the patient denies recent fevers, chills, headache, changes in vision, hearing, taste, and smell, chest pain, SOB, cough, abdominal pain, nausea, vomiting, and any pain at the time of my exam. Principal Diagnosis DKA Discharge Exam The patient appeared stable Vital signs as documented. Lungs are clear to auscultation and appear unlabored Cardiac exam, Rhythm is regular.. shrill ANA LUISA Abdominal exam reveals normal bowel sounds, soft non tender, no masses Extremities are nonedematous and both pedal pulses are normal. Neurologic exam is alert and oriented, no focal loss of strength or sensation Skin is without bruises or rashes Psychologically is without concerns for anxiety or depression. Discharge Data Allergies Allergy/AdvReac Type Severity Reaction Status Date / Time No Known Allergies Allergy Verified 09/11/22 17:02 Consultations 09/11/22 16:18 ED Decision to Admit Stat 09/12/22 10:05 Consult Gastroenterology Routine 09/13/22 13:51 Consult Cardiology Routine 09/14/22 11:12 Consult Neurology Routine Ordered Studies 09/11/22 14:31 CT head/brain wo con Stat 09/11/22 14:33 CT abd pelvis wo con Stat 09/11/22 17:17 MRI Brain [MR brain wo con] Urgent Hospital Course (1) DKA (diabetic ketoacidosis): DKA now resolved. Anion gap closed. Current mildly low bicarb likely due to hyperchloremia due to previous normal saline. No known diabetes diagnosis prior to this admission HbA1C > 16.9 Suspect this was the main cause of her altered mental state as below. sliding scale Goal BSG Range: Low 110 mg/dL, High 140 mg/dL --Correction Factor: 30 mg/dL/unit --Carbohydrate ratio = 10 g/unit Basal lantus 8 units am 5 units pm no clear if pt had testing to see if would be a candiate for oral meds but degree of A!C and illness at presentation had make insulin seem more likley (2) AMS (altered mental status): Metabolic encephalopathy - secondary to DKA as above +/- UTI (3) UTI (urinary tract infection): Urine culture with mixed tyrone Ceftriaxone initially ordered for uncomplicated UTI (dysuria mentioned in H&P) although patient denies this today. Regardless three days of ceftriaxone for uncomplicated UTI should be adequate and will d/c further antibiotics at this time. No CVA tenderness on exam (4) High anion gap metabolic acidosis: Now resolved. Secondary to ketosis as above. (5) ESTHER (acute kidney injury): Now resolved. Secondary to DKA and NSAID use. Ok to restart lisinopril as below. Continue to avoid NSAIDs. (6) Hyponatremia: Resolved (7) Aortic stenosis: Appreciate cardiology consult while here. Repeat TTE with mod/severe . need outpt appointment for TAVR candidate surveilence (8) Benign essential hypertension: return to home meds of metoprolol and lisinopril (9) Normocytic anemia: Concern for UGI bleed with CT findings of duodenitis Seen by GI on 09/13 and endoscopic workup deferred unless overt GI bleeding or significant drop in H&H Switch pantoprazole 40mg IV BID to PO daily stop nsaids (10) Acute CVA (cerebrovascular accident): MRI findings concerning for subacute lacunar infarct - neurology consulted and suspected to be articatual at this time. No further workup required and antiplatelets deferred Total Time Total Time Spent Total Time Spent (In Minutes): It required greater than 30 minutes to prepare this patient for discharge Discharge Plan Discharge Items Patient Disposition: Transfer Inpatient Rehab Fac Reason For Visit: AMS Discharge Diagnosis: dka undiagnosed diabetes encephalopathy secondary to the same mild memory imparement Activity: Per Instructions section Activity Comment: per PT/[facility] at [facility] Non-emergency contact: Primary Care Provider and Specialist Call non-emergency contact if: your symptoms worsen Follow-up/Referrals: Alton Villatoro MD [Primary Care Provider] - Diet: Carb Consistent or DM2 Addtl Attending Provider Instructions: Pt will need extensive diabetic and insulin administration instruction PT has moderate to severe and will need follow up with cardiology in the future to consider TAVR Pending Studies at Discharge: No Stand-Alone Forms: My [facility] [employer] Skilled Items Patient informed of condition?: Yes DNR: Yes Discharge Level of Care: Other Communicable Disease: No Discharge Prognosis: Stable Lines: None Urinary Catheter: No Medications and DC Order Prescriptions: New insulin glargine [Lantus U-100 Insulin] 100 unit/mL Solution 8 unit subcut UD Qty: 10 0RF Rx Instructions: 8 u sc am, 5 u sc pm insulin aspart U-100 [Novolog U-100 Insulin aspart] 100 unit/mL Solution 1 unit SC UD Qty: 10 0RF Rx Instructions: sliding scale goal 100-140 CF 30 CArb ratio 10 Continued lisinopril 10 mg tablet 10 mg PO BID atorvastatin 40 mg tablet 40 mg PO DAILY metoprolol tartrate 25 mg tablet 25 mg PO BID Discontinued furosemide 40 mg tablet 40 mg PO DAILY naproxen sodium 220 mg tablet 440 mg PO DAILY ibuprofen 600 mg tablet 600 mg PO Q8H PRN (Reason: Pain) Discharge Orders: Discharge Order (Routine); Ordered 09/16/22 Ordered By: Ben Hassan Admission Data Admit Date/Time: 09/11/22 17:17 Attending Provider: Ben Hassan Admit Provider: Luan Day Primary Care Provider: Alton Villatoro Other Providers: [facility] ; Luan Day ; Basil Giraldo ; Donovan Truong ; Lorenzo Sams ; Doug Kam ; Cat Rodas ; Brian Gomez ; Cat Mandel ; Emile Olsen ; Earnest Aquino ; Luh Zapata ; Brian Orta Coding Level of Care Code D/C DAY MANAGEMENT >30 MINS Diagnoses DKA (diabetic ketoacidosis) E11.10 AMS (altered mental status) R41.82 Altered mental status type: unspecified UTI (urinary tract infection) N39.0 High anion gap metabolic acidosis E87.29 ESTHER (acute kidney injury) N17.9 Hyponatremia E87.1 Aortic stenosis I35.0 Benign essential hypertension I10 Normocytic anemia D64.9 Acute CVA (cerebrovascular accident) I63.9
== END 2022-09-16 16:37 | DRG 637 ==
LOC: ED 14:07 → SUATTDRO 17:17 → 2S 17:17 → 2E 09-12 15:06 → 3N 09-15 11:30